=== PATIENT | female | born 1955 | race Caucasian/White ===

== ENCOUNTER 2019-03-12 11:50 | Emergency (ER) | payer OTHER, SELFPAY ==
[2019-03-12] VITALS (9 sets, daily range): BP systolic 171–245; BP diastolic 76–113; PULSE 44–76; RESP 11–14; TEMP 36.7; O2SAT 97–100
--- NOTE | 2019-03-12 11:59 | DI.RAD.S_ITS ---
PROCEDURE: XR CHEST 1V INDICATIONS: chest pain TECHNIQUE: One view of the chest was acquired. COMPARISON: None. FINDINGS: Surgical changes and devices: Epigastric clips are seen. Lungs and pleura: Lungs are clear. No pleural effusions or pneumothorax. Mediastinum: The cardiac contours are within normal limits. The aorta demonstrates calcification and tortuosity. Bones and chest wall: Age-appropriate bony degenerative changes are seen. No suspicious bony lesions. Overlying soft tissues appear unremarkable. IMPRESSION: Portable chest within normal limits. Dictated by: Vasyl Lopez M.D. on 03/12/2019 at 12:15 Approved by: Vasyl Lopez M.D. on 03/12/2019 at 12:15
--- NOTE | 2019-03-12 12:11 | PC.NURSE ---
nilateral lower leg pain, nausea, headache and aching heart. Denies chest pain but reports some aching in her chest. Denies SOB.
[2019-03-12 12:17] LABS: Add Manual Diff / Slide Review NO; Basophils Absolute Auto 0 /uL (0-100); Basophils Percent Auto 0.8 % (0-2); Eosinophils Absolute Auto 0 /uL (0-450); Eosinophils Percent Auto 0.5 % (2-4); Hemoglobin 12.9 g/dL (12.0-16.0); Lymphocytes Absolute Auto 1500 /uL (1100-4500); Lymphocytes Percent Auto 24.9 % (25-40); Mean Corpuscular HGB Conc 33.9 % (30-36); Mean Corpuscular Hemoglobin 30.5 PG (26-34); Monocytes Absolute Auto 400 /uL (0-900); Neutrophils Absolute Auto 4000 /uL (1500-7000); Neutrophils Percent Auto 67.8 % (50-75); Platelet Count 180 X10^3/uL (150-400); Red Blood Cell Count 4.22 X10^6/uL (4.0-5.2); Red Cell Distribution Width 13.4 % (11.6-14.8); White Blood Cell Count 5.9 X10^3/uL (4.5-11.0)
[2019-03-12 12:22] LABS: INR 0.9 (0.9-1.3); Prothrombin Time 10.5 SECONDS (10.1-12.7)
[2019-03-12 12:24] LABS: PTT Partial Thromboplastin Tim 33 SECONDS (26.4-36.2)
[2019-03-12 12:28] LABS: Alanine Aminotransferase 16 IU/L (9-52); Albumin 4.4 g/dL (3.5-5.0); Albumin Globulin Ratio 1.8 (1.0-2.8); Alkaline Phosphatase 95 U/L (38-126); Aspartate Aminotransferase 24 IU/L (14-36); BUN Creatinine Ratio 28.3 (6-22); Bilirubin Total 0.8 mg/dL (0.2-1.3); Blood Urea Nitrogen 17 mg/dL (7-17); Calcium 9.4 mg/dL (8.4-10.2); Carbon Dioxide 25 mmol/L (22-32); Chloride 106 mmol/L (98-107); Creatine Kinase 67 U/L (30-135); Estimated Glomerular Filt Rate > 60.0 mL/min (>60); Globulin 2.5 g/dL (1.7-4.1); Glucose 99 mg/dL (80-110); HEMOLYSIS 30 (0-50); Lipase 71 U/L (23-300); Potassium 3.6 mmol/L (3.4-5.1); Sodium 140 mmol/L (137-145); Total Protein 6.9 g/dL (6.3-8.2)
[2019-03-12 12:38] LABS: Troponin I < 0.012 ng/mL (0.01-0.034)
[2019-03-12] MEDS: LISINOPRIL 5 MG TABLET PO (14:43)
[2019-03-12] MEDS: POTASSIUM CHLORIDE 20 MEQ TAB PO (14:43)
[2019-03-12] MEDS: SODIUM CHLORIDE 0.9% 500 ML 1000 ML IV (15:04)
--- NOTE | 2019-03-12 15:51 | PC.NURSE ---
Patient reports feeling significantly better after fluids. States legs feel better and my joints feel better overall
--- NOTE | 2019-03-12 16:20 | ED.GENADULT ---
HPI - General Adult <Maninder SimeonJAMIN - Last Filed: 03/12/19 22:47> General Chief complaint: Hypertension Stated complaint: 'REACTION TO BLOOD PRESSURE MEDICINE' Time Seen by Provider: 03/12/19 12:23 Source: patient Mode of arrival: ambulatory Limitations: no limitations History of Present Illness HPI narrative: This is a 63-year-old female, remote history of smoker, presents to ED with elevated blood pressure with symptoms such as dizziness, headache, nausea, dry mouth and also complains of bilateral lower extremity numbness and cramps since for last 2 weeks. Patient reports she used to be on p.o. diuretic HTN medication and this has been changed to clonidine patch during last 1 month. Patient states because she does not like to take pills and when she was instructed to take a banana daily for this medication, hypertension medication has been changed to patch form. She only uses clonidine patch currently to manage her blood pressure. The patient reports she had gastric bypass surgery in the past and is not able to take large glass of water or eat a banana which makes her full is Magaly and makes her nauseous. Patient denies vision change, speech difficulty, weakness to limbs, chest pain, breathing difficulty at this time. Related Data Home Medications Medication Instructions Recorded Confirmed amlodipine 5 mg PO DAILY 03/12/19 03/12/19 clonidine 0.2 mg TOPICAL QWEEK 03/12/19 03/12/19 diclofenac sodium 1 applic TOPICAL DIRECTED 03/12/19 Previous Rx's Medication Instructions Recorded lisinopril 5 mg PO DAILY #14 tab 03/12/19 Allergies Allergy/AdvReac Type Severity Reaction Status Date / Time No Known Drug Allergies Allergy Verified 03/12/19 12:05 Review of Systems <Maninder SimeonJAMIN - Last Filed: 03/12/19 22:47> Review of Systems General: Denies fever, chills, fatigue, malaise, sweats. HEENT: Denies sinus pain, ear pain, sore throat, difficulty swallowing, dizziness. Respiratory: Denies dyspnea, cough, wheezing, hemoptysis, sputum. Cardiovascular: Denies chest pain, palpitations, orthopnea, edema. Gastrointestinal: Reports nausea. Denies vomiting, abdominal pain, diarrhea, constipation, melena. : Denies dysuria, frequency, incontinence, hematuria, urinary retention. Musculoskeletal: Bilateral lower extremity numbness and cramps. Denies weakness, joint pain or bony pain. Skin: Denies rash, skin lesions, or other. Neurologic: Reports headache. Denies weakness, change in speech, confusion, seizures, incoordination. Psychiatric: No concerning psychosocial issues. 12-point review of systems is negative except for those stated above. PFSH <JAMIN Beth - Last Filed: 03/12/19 22:47> Medical History Hypertension (Acute) Hypokalemia (Acute) Surgical History H/O gastric bypass (Acute) History of cholecystectomy (Chronic) History of bilateral breast reduction surgery (Resolved) History of total hysterectomy (Resolved) Social History Smoking Status: Former smoker Social History Smoking Status: Former smoker Exam <JAMIN Beth - Last Filed: 03/12/19 22:47> Narrative Exam Narrative: GEN: Alert, oriented x 3, well appearing and nourished, and in no acute distress. Head: Normal cephalic, atraumatic. No scalp or temporal tenderness, palpable mass or rash. EYES: Pupils are equal, round, and reactive to light and accommodation. Extraocular muscles are intact bilaterally. There is no subconjunctival hemorrhage, exudate and sclera non-icteric. ENT: Hearing grossly intact. Nose without bleeding, purulent discharge. Mucous membrane moist, no mucosal lesion. Throat without erythema, tonsillar hypertrophy or exudate. Uvula in midline, airway patent. Neck: Trachea in midline. No JVD, non-tender without lymphadenopathy. No masses or thyroid megaly. Supple, non-tender and no meningeal signs. CARDIAC: Normal regular rate and rhythm without murmurs, gallops, or rubs. No chest wall tenderness. No peripheral edema, cyanosis or pallor. Capillary refill is less than 2 seconds. RESPIRATORY: Lungs are cleat to auscultate bilaterally. No cough, wheezes, rales, or rhonchi. No stridor, respiratory distress, increase work of breathing, or accessary muscle used. ABD: Abdomen soft, nontender and non-distended. No guarding or rebound tenderness to palpate. Bowel sounds are normal in all 4 quadrants. There is no palpable masses or organomegaly. EXT: Full painless ROM of all extremities with no loss of sensation, strength, effusion or edema. SKIN: Warm, dry, normal color for patient. No erythema, lesions or rash over visible areas. BACK: Nontender without deformity or crepitance. No flank tenderness. NEUROLOGICAL: Alert and oriented to place, time and person. Sensation and motor function intact bilaterally. No facial droops, dysphasia. PSYCHIATRIC: Good judgement and reason, without hallucinations, abnormal affect or abnormal behaviors during the examination. Patient is not suicidal. Initial Vital Signs Initial Vital Signs: Vital Signs Temperature 98.1 F 03/12/19 11:51 Pulse Rate 76 03/12/19 11:51 Respiratory Rate 12 03/12/19 11:51 Blood Pressure 245/113 H 03/12/19 11:51 Pulse Oximetry 98 03/12/19 11:51 <Bethany Dubose DO - Last Filed: 03/16/19 07:16> Initial Vital Signs Initial Vital Signs: Vital Signs Temperature 98.1 F 03/12/19 11:51 Pulse Rate 76 03/12/19 11:51 Respiratory Rate 12 03/12/19 11:51 Blood Pressure 245/113 H 03/12/19 11:51 Pulse Oximetry 98 03/12/19 11:51 Course <JAMIN Beth - Last Filed: 03/12/19 22:47> Orders Ordered: Discontinued Medications Sodium Chloride (Normal Saline 0.9%) 500 mls @ 1,000 mls/hr IV BOLUS ONE Stop: 03/12/19 15:24 Last Infusion: 03/12/19 15:43 Dose: 0 mls/hr Admin: 03/12/19 15:04 Dose: 1,000 mls/hr Lisinopril (Zestril) 5 mg PO NOW ONE Stop: 03/12/19 14:33 Last Admin: 03/12/19 14:43 Dose: 5 mg Potassium Chloride (Klor-Con M20) 20 meq PO NOW ONE Stop: 03/12/19 14:33 Last Admin: 03/12/19 14:43 Dose: 20 meq Vital Signs - 8 hr 03/12/19 14:30 03/12/19 14:43 03/12/19 15:40 Pulse Rate 49 L 65 48 L Respiratory Rate 11 L Blood Pressure 179/105 H Blood Pressure [Right Arm] 201/84 H 208/83 H Pulse Oximetry 100 98 03/12/19 16:09 03/12/19 16:22 Pulse Rate 45 L 45 L Respiratory Rate 13 Blood Pressure 190/81 H Blood Pressure [Right Arm] 190/81 H Pulse Oximetry 99 <Bethany Dubose DO - Last Filed: 03/16/19 07:16> Orders Ordered: Discontinued Medications Sodium Chloride (Normal Saline 0.9%) 500 mls @ 1,000 mls/hr IV BOLUS ONE Stop: 03/12/19 15:24 Last Infusion: 03/12/19 15:43 Dose: 0 mls/hr Admin: 03/12/19 15:04 Dose: 1,000 mls/hr Lisinopril (Zestril) 5 mg PO NOW ONE Stop: 03/12/19 14:33 Last Admin: 03/12/19 14:43 Dose: 5 mg Potassium Chloride (Klor-Con M20) 20 meq PO NOW ONE Stop: 03/12/19 14:33 Last Admin: 03/12/19 14:43 Dose: 20 meq Vital Signs - 8 hr 03/12/19 14:30 03/12/19 14:43 03/12/19 15:40 Pulse Rate 49 L 65 48 L Respiratory Rate 11 L Blood Pressure 179/105 H Blood Pressure [Right Arm] 201/84 H 208/83 H Pulse Oximetry 100 98 03/12/19 16:09 03/12/19 16:22 Pulse Rate 45 L 45 L Respiratory Rate 13 Blood Pressure 190/81 H Blood Pressure [Right Arm] 190/81 H Pulse Oximetry 99 Medical Decision Making <JAMIN Beth - Last Filed: 03/12/19 22:47> Differential Diagnosis HTN, electrolytes imbalance, dehydration, arrhythema, RI, stroke Medical Records Medical records reviewed: Yes I reviewed the patient's medical records. Lab Data Lab results reviewed: Yes I reviewed the patient's lab results. Result diagrams: 03/12/19 12:05 03/12/19 12:05 Lab Results 03/12/19 03/12/1919 Range/Units 12:05 12:05 12:05 WBC 5.9 (4.5-11.0) X10^3/uL RBC 4.22 (4.0-5.2) X10^6/uL Hgb 12.9 (12.0-16.0) g/dL Hct 38.0 (36-46) % MCV 90.0 (80-100) fL MCH 30.5 (26-34) PG MCHC 33.9 (30-36) % RDW 13.4 (11.6-14.8) % Plt Count 180 (150-400) X10^3/uL Neut % (Auto) 67.8 (50-75) % Lymph % (Auto) 24.9 L (25-40) % [place] % (Auto) 6.0 (3-14) % Eos % (Auto) 0.5 L (2-4) % Baso % (Auto) 0.8 (0-2) % Neut # (Auto) 4000 (9513-5165) /uL Lymph # (Auto) 1500 (0196-4298) /uL [place] # (Auto) 400 (0-900) /uL Eos # (Auto) 0 (0-450) /uL Baso # (Auto) 0 (0-100) /uL PT 10.5 (10.1-12.7) SECONDS INR 0.9 (0.9-1.3) APTT 33 (26.4-36.2) SECONDS Sodium 140 (137-145) mmol/L Potassium 3.6 (3.4-5.1) mmol/L Chloride 106 (98-107) mmol/L Carbon Dioxide 25 (22-32) mmol/L BUN 17 (7-17) mg/dL Creatinine 0.60 (0.52-1.04) mg/dL Estimated GFR > 60.0 (>60) mL/min BUN/Creatinine Ratio 28.3 H (6-22) Glucose 99 (80-110) mg/dL Calcium 9.4 (8.4-10.2) mg/dL Total Bilirubin 0.8 (0.2-1.3) mg/dL AST 24 (14-36) IU/L ALT 16 (9-52) IU/L Alkaline Phosphatase 95 (38-126) U/L Total Creatine Kinase 67 (30-135) U/L CK-MB (CK-2) TNP CK-MB (CK-2) Rel Index TNP Troponin I < 0.012 (0.01-0.034) ng/mL Total Protein 6.9 (6.3-8.2) g/dL Albumin 4.4 (3.5-5.0) g/dL Globulin 2.5 (1.7-4.1) g/dL Albumin/Globulin Ratio 1.8 (1.0-2.8) Lipase 71 (23-300) U/L Imaging Data Chest x-ray: Radiologist's impression: [address] [address] XRay Report Signed Patient: Nora Mckeon [facility]#: [id number] : 5Acct:[id number] Age/Sex: 63 / FDate of Service: 03/12/19 Loc: ED Accession Number: [id number] Procedure: XR chest 1V Ordering Provider: Bethany Dubose D.O. PROCEDURE: XR CHEST 1V INDICATIONS: chest pain TECHNIQUE: One view of the chest was acquired. COMPARISON: None. FINDINGS: Surgical changes and devices: Epigastric clips are seen. Lungs and pleura: Lungs are clear. No pleural effusions or pneumothorax. Mediastinum: The cardiac contours are within normal limits. The aorta demonstrates calcification and tortuosity. Bones and chest wall: Age-appropriate bony degenerative changes are seen. No suspicious bony lesions. Overlying soft tissues appear unremarkable. IMPRESSION: Portable chest within normal limits. Dictated by: Vasyl Lopez M.D. on 03/12/2019 at 12:15 Approved by: Vasyl Lopez M.D. on 03/12/2019 at 12:15 ECG Data Attestation: I personally reviewed and interpreted this ECG as follows: Prior ECG tracings: not available for review Interpretation: Sinus rhythm rate at 63, normal axis, no ST elevation or depression MDM Narrative Medical decision making narrative: Patient's EKG shows normal sinus rhythm without ST elevation or depression. During patient's stay in the ED and at rest her heart rate has slowed to 40s to 50s. Patient reports her usual heart rate is in 50s and she has been trying to relax in attempt to lower her blood pressure. Neurological physical exam was within normal. Her blood tests and chest x-ray results were unremarkable and troponin level was negative. She was provided with 20 mEq of potassium p.o. for lower end of normal limits as 3.6. Patient reports not able to drink a large amount and damage had similar symptoms in lower leg cramping and numbness IV fluid helped her. Given patient has elevated blood pressure, normal saline of 500 mL was provided and patient states her leg numbness and tingling were resolved. Patient was medicated with lisinopril 5 mg while in ED and advised to monitor her blood pressure at home and regular interval and other routine time. Patient advised to record days and take it to her primary care physician with her blood pressure machine for next appointment. Patient's blood pressure was from average 160s to 200 and systolic/70s to 80s diastolic. Patient reports improved symptoms with the treatment. Patient advised to use additional lisinopril to her daily treatment for clonidine patch. Return precautions were discussed with patient and advised to follow up with her PCP next week. No further questions were expressed at this time. <Bethany Dubose, DO - Last Filed: 03/16/19 07:16> Lab Data Lab Results 03/12/19 03/12/19 03/12/19 Range/Units 12:05 12:05 12:05 WBC 5.9 (4.5-11.0) X10^3/uL RBC 4.22 (4.0-5.2) X10^6/uL Hgb 12.9 (12.0-16.0) g/dL Hct 38.0 (36-46) % MCV 90.0 (80-100) fL MCH 30.5 (26-34) PG MCHC 33.9 (30-36) % RDW 13.4 (11.6-14.8) % Plt Count 180 (150-400) X10^3/uL Neut % (Auto) 67.8 (50-75) % Lymph % (Auto) 24.9 L (25-40) % [place] % (Auto) 6.0 (3-14) % Eos % (Auto) 0.5 L (2-4) % Baso % (Auto) 0.8 (0-2) % Neut # (Auto) 4000 (5199-3016) /uL Lymph # (Auto) 1500 (6357-4637) /uL [place] # (Auto) 400 (0-900) /uL Eos # (Auto) 0 (0-450) /uL Baso # (Auto) 0 (0-100) /uL PT 10.5 (10.1-12.7) SECONDS INR 0.9 (0.9-1.3) APTT 33 (26.4-36.2) SECONDS Sodium 140 (137-145) mmol/L Potassium 3.6 (3.4-5.1) mmol/L Chloride 106 (98-107) mmol/L Carbon Dioxide 25 (22-32) mmol/L BUN 17 (7-17) mg/dL Creatinine 0.60 (0.52-1.04) mg/dL Estimated GFR > 60.0 (>60) mL/min BUN/Creatinine Ratio 28.3 H (6-22) Glucose 99 (80-110) mg/dL Calcium 9.4 (8.4-10.2) mg/dL Total Bilirubin 0.8 (0.2-1.3) mg/dL AST 24 (14-36) IU/L ALT 16 (9-52) IU/L Alkaline Phosphatase 95 (38-126) U/L Total Creatine Kinase 67 (30-135) U/L CK-MB (CK-2) TNP CK-MB (CK-2) Rel Index TNP Troponin I < 0.012 (0.01-0.034) ng/mL Total Protein 6.9 (6.3-8.2) g/dL Albumin 4.4 (3.5-5.0) g/dL Globulin 2.5 (1.7-4.1) g/dL Albumin/Globulin Ratio 1.8 (1.0-2.8) Lipase 71 (23-300) U/L Discharge Plan Departure Patient Disposition: Home Clinical Impression: Muscle spasm Hypertension Qualifiers: Hypertension type: unspecified Qualified Code(s): I10 - Essential (primary) hypertension Discharge Date/Time: 03/12/19 16:23 Interventions: ED Discharge Assessment Last Done: 03/12/19 16:22 Instructions: DI for High Blood Pressure, DI for Muscle Spasm Activity Restrictions/Additional Instructions: You have been diagnosed with [high blood pressure and muscle spasm. You're EKG, chest x-ray, labs are looking good today. You're blood pressure has been elevated in the ED from 160s in systolic to 200's. You're symptoms have been improved after the medications and IV fluids. You potassium was lower normal limits. You're medicated with a small dose of potassium before discharged to home. I believe you're currently taking only 1 blood pressure medication which is clonidine patch.]. What to do: *Take your medications as directed. Lisinopril 5 mg is added today. Please take additional blood pressure medicine with clonidine patch and as we discussed please monitor your blood pressure. Your doctor may have to adjust blood pressure medication with this information. You can continue to take potassium [id number] supplement if you wish to. *Follow up with your primary care provider in 2-3 days, call for an appointment. Let them know you were seen in the ED and that we asked you to be seen in follow up. *Return to ED if you have any new, worsening, or concerning symptoms, such as [chest pain, breathing difficulty, unable to tolerate fluids, dizziness, severe headache, vision change, weakness to 1 side of body, speech difficulty, any acute concerns]. Prescriptions: New lisinopril 5 mg tablet 5 mg PO DAILY Qty: 14 RF: 0 No Action clonidine 0.2 mg/24 hr patch weekly 0.2 mg topical QWEEK RF: 0 amlodipine 5 mg tablet 5 mg PO DAILY RF: 0 diclofenac sodium 1 % gel 1 applic topical DIRECTED RF: 0 Referrals: [facility] [Outside] <Bethany Dubose DO - Last Filed: 03/16/19 07:16> Cosign ED Attending Cosdebbieature Attestation: I was immediately available in the department for consultation. This documentation has been reviewed and I agree with assessment and plan. Supervised by Bethany Dubose DO
== END 2019-03-12 16:23 | disposition home or self-care (01) ==
PROVIDERS: Emergency Medicine; Emergency Provider Nurse Practitioner Family
DX: I10 Essential (primary) hypertension (principal); M62.838 Other muscle spasm
CPT/HCPCS: 36591; 71045; 80053; 82550; 83690; 84484; 85025; 85610; 85730; 93005; 96360; 99284; 99285

== ENCOUNTER 2022-02-23 18:29 | Inpatient (IN) | payer MEDICARE, OTHER, SELFPAY ==
[2022-02-23] VITALS (42 sets, daily range): BP systolic 128–262; BP diastolic 62–129; PULSE 59–88; RESP 7–43; TEMP 36–36.6; O2SAT 96–100; BMI 25.4; BMI 24.9
--- NOTE | 2022-02-23 19:14 | DI.CT.S_ITS ---
PROCEDURE: CT HEAD/BRAIN WO CON INDICATIONS: altered, HTN emergency TECHNIQUE: Noncontrast 4.5 mm thick angled axial sections acquired from the foramen magnum to the vertex, with coronal and sagittal reformats. For radiation dose reduction, the following was used: automated exposure control, adjustment of mA and/or kV according to patient size. COMPARISON: None. FINDINGS: Image quality: Excellent. CSF spaces: Basal cisterns are patent. No extra-axial fluid collections. Ventricles are normal in size and shape. Brain: No midline shift. No intracranial hemorrhage but there is a mass near the internal auditory canal of the left cerebellum, which measures up to 2.4 cm oblique AP, 2.1 cm oblique transverse and 2.0 cm craniocaudad. This is not associated with asymmetric enlargement of the internal auditory canal bone margins, and the appearance therefore is considered more likely to represent a coincidental finding of a meningioma rather than definite acoustic neuroma.. Dominguez-white matter interface is normal. Skull and face: Calvarium and visualized facial bones are intact, without suspicious lesions. Sinuses: Visualized sinuses and mastoids are clear. IMPRESSION: No acute disease however there is a mass lesion at the area at or adjacent to the internal auditory canal on the left considered more likely by appearance to be a coincidentally found meningioma. Follow-up by contrast-enhanced elective brain MRI is recommended in the near term. No ventricular displacement is associated. Dictated by: Ander Montano M.D. on 02/23/2022 at 20:20 Approved by: Ander Montano M.D. on 02/23/2022 at 20:25
--- NOTE | 2022-02-23 19:14 | DI.RAD.S_ITS ---
PROCEDURE: XR CHEST 1V INDICATIONS: chest pain TECHNIQUE: One view of the chest was acquired. COMPARISON: [facility], CR, XR CHEST 1V, 03/12/2019, 12:11. FINDINGS: Surgical changes and devices: None. Lungs and pleura: Lungs are clear. No pleural effusions or pneumothorax. Mediastinum: Mediastinal contours appear normal. Heart size is normal. Bones and chest wall: No suspicious bony lesions. Overlying soft tissues appear unremarkable. IMPRESSION: Normal for age, source of current chest pain symptoms is not seen. Dictated by: Ander Montano M.D. on 02/23/2022 at 20:12 Approved by: Ander Montano M.D. on 02/23/2022 at 20:12
[2022-02-23 19:29] LABS: Add Manual Diff / Slide Review NO; Basophils Absolute Auto 100 /uL (0-100); Basophils Percent Auto 0.9 % (0-2); Eosinophils Absolute Auto 0 /uL (0-450); Eosinophils Percent Auto 0.7 % (2-4); Hematocrit 38.9 % (36-46); Hemoglobin 13.1 g/dL (12.0-16.0); Lymphocytes Absolute Auto 1600 /uL (1100-4500); Lymphocytes Percent Auto 26.3 % (25-40); Mean Corpuscular HGB Conc 33.8 % (30-36); Mean Corpuscular Volume 91.6 fL (80-100); Monocytes Absolute Auto 300 /uL (0-900); Neutrophils Absolute Auto 4200 /uL (1500-7000); Neutrophils Percent Auto 67.1 % (50-75); Platelet Count 187 X10^3/uL (150-400); Red Blood Cell Count 4.24 X10^6/uL (4.0-5.2); Red Cell Distribution Width 13.7 % (11.6-14.8); White Blood Cell Count 6.3 X10^3/uL (4.5-11.0)
[2022-02-23] MEDS: LABETALOL 20 MG/4 ML SYRINGE 10 MG IV (19:31)
[2022-02-23] MEDS: SODIUM CHLORIDE 0.9% 1,000 ML 150 ML IV (19:33)
[2022-02-23 19:37] LABS: Prothrombin Time 10.6 SECONDS (10.1-12.7)
[2022-02-23 19:40] LABS: Alanine Aminotransferase 44 IU/L (<35); Albumin 4.9 g/dL (3.5-5.0); Albumin Globulin Ratio 1.6 (1.0-2.8); Alkaline Phosphatase 110 U/L (38-126); Aspartate Aminotransferase 46 IU/L (14-36); BUN Creatinine Ratio 20.9 (6-22); Bilirubin Total 0.6 mg/dL (0.2-1.3); Blood Urea Nitrogen 19 mg/dL (7-17); Calcium 8.9 mg/dL (8.4-10.2); Carbon Dioxide 23 mmol/L (22-32); Chloride 101 mmol/L (98-107); Creatine Kinase 75 U/L (30-135); Estimated Glomerular Filt Rate > 60 mL/min (>60); Glucose 105 mg/dL (80-110); HEMOLYSIS < 15 (0-50); Lipase 118 U/L (23-300); Potassium 3.5 mmol/L (3.4-5.1); Sodium 137 mmol/L (137-145); Total Protein 7.9 g/dL (6.3-8.2)
--- NOTE | 2022-02-23 19:40 | ED_ITS ---
HPI - Weakness General Chief complaint: Weakness Stated complaint: Really Sick Time Seen by Provider: 02/23/22 18:35 Source: patient and family Mode of arrival: Wheelchair History of Present Illness HPI Narrative: 66-year-old female former smoker with history of untreated blood pressure for quite some time presents with her significant other and a chief complaint of feeling very poorly for the past week or so. She complains of a crushing headache along with dizziness and some blurring of her vision. She states this has been gradually worsening, she denies any trauma, fever, neck pain or the use of blood thinners. She denies any obvious provocation, palliation or radiation of her head pain. She denies chest pain or shortness of breath. She denies abdominal pain but has been nauseated and thinks maybe she would have been able to vomit but she is had a stomach surgery that prevents it. She admits to tingling in her lower extremities but denies any weakness, footdrop or loss of control of bowel, bladder Related Data Home Medications Medication Instructions Recorded Confirmed amlodipine 5 mg tablet 5 mg PO DAILY 03/12/19 03/12/19 clonidine 0.2 mg/24 hr weekly 0.2 mg topical QWEEK 03/12/19 03/12/19 transdermal patch diclofenac sodium 1 % topical gel 1 applic topical DIRECTED 03/12/19 Previous Rx's Medication Instructions Recorded lisinopril 5 mg tablet 5 mg PO DAILY #14 tabs 03/12/19 Allergies Allergy/AdvReac Type Severity Reaction Status Date / Time No Known Drug Allergies Allergy Verified 03/12/19 12:05 Review of Systems Review of Systems Narrative: GENERAL: See HPI HEENT: See HPI RESPIRATORY: See HPI CARDIOVASCULAR: Denies chest pain, palpitations, orthopnea, edema, GASTROINTESTINAL: See HPI : Denies dysuria, frequency, incontinence, hematuria, urinary retention. MUSCULOSKELETAL: See HPI SKIN: Denies rash, skin lesions, or other NEUROLOGIC: See HPI PSYCHIATRIC: No concerning psychosocial issues. 12 point review of systems is negative except for those stated above Patient History Medical History (Updated 02/23/22 @ 22:18 by Martin Pack DO) Hypertension Hypokalemia Surgical History H/O gastric bypass History of bilateral breast reduction surgery History of cholecystectomy History of total hysterectomy Social History Smoking Status: Former smoker Smoking Status: Former smoker alcohol intake frequency: 0-2 drinks per day Substance Use Type: does not use Exam Narrative Exam Narrative: GENERAL: [66] year old patient appears stated age. Well-developed patient, in mild distress. HEAD: Atraumatic. Normocephalic. EYES: Pupils equal round and reactive. Extraocular motions intact. No scleral icterus. No injection or drainage. ENT: Nose without bleeding, purulent drainage. Throat without erythema, tonsillar hypertrophy or exudate. Airway patent. NECK: Trachea midline. Non tender CARDIOVASCULAR: Regular rate and rhythm without murmurs, gallops, or rubs. RESPIRATORY: Clear to auscultation. Breath sounds equal bilaterally. No wheezes, rales, or rhonchi. GASTROINTESTINAL: Abdomen soft, non-tender, nondistended. EXTREMITIES: No edema or joint tenderness. BACK: Nontender without deformity or crepitance. No flank tenderness. NEURO: AOx3. SKIN: No rash or erythema of visible areas NIH Stroke Scale 1a. LOC: Patient is alert and keenly responsive (0) 1b. LOC Questions: Patient answers both LOC questions accurately (0) 1c. LOC Commands: Patient performs both tasks correctly (0) 2. Best Gaze: Normal (0) 3. Visual: No visual loss (0) 4. Facial palsy: Normal symmetrical movements (0) 5. Motor arm: No drift (0) 6. Motor leg: No drift (0) 7. Limb ataxia: Absent (0) 8. Sensory: Normal (0) 9. Best language: No aphasia; normal (0) 10. Dysarthria: Normal (0) 11. Extinction and inattention: No abnormality (0) NIHSS: 0 Initial Vital Signs Initial Vital Signs: Vital Signs Temperature 96.8 F L 02/23/22 18:32 Pulse Rate 88 02/23/22 18:32 Respiratory Rate 18 02/23/22 18:32 Blood Pressure 262/129 H 02/23/22 18:32 Pulse Oximetry 100 02/23/22 18:32 Oxygen Delivery Method 02/23/22 18:32 Course Orders Ordered: ED Orders 02/23/22 19:05 Complete Blood Count AUTO DIFF Stat Comprehensive Metabolic Panel Stat Lipase Stat NT-proBNP (BNP-Adult 18+) Stat Prothrombin Time INR Stat Troponin & CK Cardiac Panel Stat 02/23/22 19:14 CT head/brain wo con Stat XR chest 1V Stat 02/23/22 19:24 EKG-12 Lead Stat Sodium Chloride (Normal Saline 0.9%) 1,000 mls @ 150 mls/hr IV CONT FANTASMA Last Admin: 02/23/22 19:33 Dose: 150 mls/hr Documented By: SHARI Nicardipine HCl 25 mg/ Sodium (Chloride) 250 mls @ 50 mls/hr IV TITRATE FANTASMA; Protocol Discontinued Medications Labetalol HCl (Labetalol 20 Mg/4 Ml Syringe) 10 mg IV NOW ONE Stop: 02/23/22 19:15 Last Admin: 02/23/22 19:31 Dose: 10 mg Documented By: SHARI Lisinopril (Lisinopril 20 Mg Tablet) 20 mg PO NOW ONE Stop: 02/23/22 21:06 Last Admin: 02/23/22 21:12 Dose: 20 mg Documented By: SHARI Reevaluation(s) Reevaluation #1: Patient has a significant, if not complete resolution of symptoms after labetalol 10 mg. Her blood pressures down to the 180s Reevaluation #2: BP back up and symptoms return 30 minutes later. She states that she thinks she had relatively good blood pressure control when she had been on her lisinopril 20 mg, this has been ordered and administered, an additional labetalol 10 mg ordered while we wait Again her blood pressure responds nicely, down to the 180s and her symptoms follow accordingly. Reevaluation #3: 45 minutes after lisinopril administered her blood pressure continues to climb into the 230s and her headache and dizziness have returned. Hospitalist contacted for admission, nicardipine drip ordered Vital Signs Vital signs: Vital Signs - 8 hr 02/23/22 18:32 02/23/22 19:31 02/23/22 19:30 Temperature 96.8 F L Pulse Rate 88 65 68 Respiratory Rate 18 25 H Blood Pressure 262/129 H 230/108 H Pulse Oximetry 100 98 Oxygen Delivery Method Room Air 02/23/22 19:31 02/23/22 19:31 02/23/22 19:35 Temperature Pulse Rate 66 Respiratory Rate 14 Blood Pressure 230/108 H 225/94 H Pulse Oximetry 98 Oxygen Delivery Method 02/23/22 19:35 02/23/22 19:41 02/23/22 19:41 Temperature Pulse Rate 65 62 Respiratory Rate 15 12 Blood Pressure 203/95 H Pulse Oximetry 98 97 Oxygen Delivery Method 02/23/22 19:58 02/23/22 19:45 02/23/22 19:45 Temperature Pulse Rate 63 62 Respiratory Rate 13 Blood Pressure 189/84 H 198/95 H Pulse Oximetry 98 Oxygen Delivery Method 02/23/22 19:50 02/23/22 19:50 02/23/22 19:55 Temperature Pulse Rate 63 63 Respiratory Rate 16 17 Blood Pressure 199/94 H Pulse Oximetry 98 97 Oxygen Delivery Method 02/23/22 19:55 02/23/22 20:00 02/23/22 20:11 Temperature Pulse Rate 63 61 Respiratory Rate 30 H 17 Blood Pressure 189/84 H Pulse Oximetry 99 99 Oxygen Delivery Method 02/23/22 20:11 02/23/22 20:15 02/23/22 20:15 Temperature Pulse Rate 63 Respiratory Rate 13 Blood Pressure 223/103 H 207/95 H Pulse Oximetry 99 Oxygen Delivery Method 02/23/22 20:20 02/23/22 20:20 02/23/22 20:25 Temperature Pulse Rate 61 59 L Respiratory Rate 15 16 Blood Pressure 207/96 H Pulse Oximetry 98 98 Oxygen Delivery Method 02/23/22 20:25 02/23/22 20:30 02/23/22 20:30 Temperature Pulse Rate 60 Respiratory Rate 16 Blood Pressure 202/96 H 209/97 H Pulse Oximetry 98 Oxygen Delivery Method 02/23/22 20:35 02/23/22 20:35 02/23/22 20:40 Temperature Pulse Rate 59 L Respiratory Rate 16 Blood Pressure 201/92 H 196/95 H Pulse Oximetry 97 Oxygen Delivery Method 02/23/22 20:40 02/23/22 20:45 02/23/22 20:45 Temperature Pulse Rate 61 60 Respiratory Rate 15 15 Blood Pressure 192/93 H Pulse Oximetry 98 97 Oxygen Delivery Method 02/23/22 21:12 02/23/22 20:50 02/23/22 20:50 Temperature Pulse Rate 60 65 Respiratory Rate 16 Blood Pressure 206/93 H 181/98 H Pulse Oximetry 99 Oxygen Delivery Method 02/23/22 20:55 02/23/22 20:55 02/23/22 21:00 Temperature Pulse Rate 63 Respiratory Rate 10 L Blood Pressure 171/88 H 206/93 H Pulse Oximetry 97 Oxygen Delivery Method 02/23/22 21:00 Temperature Pulse Rate 63 Respiratory Rate 12 Blood Pressure Pulse Oximetry 98 Oxygen Delivery Method MDM - Weakness Lab Data Result diagrams: 02/23/22 19:05 02/23/22 19:05 Labs: Lab Results 02/23/22 02/23/22 02/23/22 Range/Units 19:05 19:05 19:05 WBC 6.3 (4.5-11.0) X10^3/uL RBC 4.24 (4.0-5.2) X10^6/uL Hgb 13.1 (12.0-16.0) g/dL Hct 38.9 (36-46) % MCV 91.6 (80-100) fL MCH 31.0 (26-34) PG MCHC 33.8 (30-36) % RDW 13.7 (11.6-14.8) % Plt Count 187 (150-400) X10^3/uL Neut % (Auto) 67.1 (50-75) % Lymph % (Auto) 26.3 (25-40) % [place] % (Auto) 5.0 (3-14) % Eos % (Auto) 0.7 L (2-4) % Baso % (Auto) 0.9 (0-2) % Neut # (Auto) 4200 (2125-1887) /uL Lymph # (Auto) 1600 (8827-8106) /uL [place] # (Auto) 300 (0-900) /uL Eos # (Auto) 0 (0-450) /uL Baso # (Auto) 100 (0-100) /uL PT 10.6 (10.1-12.7) SECONDS INR 1.0 (0.9-1.3) Sodium 137 (137-145) mmol/L Potassium 3.5 (3.4-5.1) mmol/L Chloride 101 (98-107) mmol/L Carbon Dioxide 23 (22-32) mmol/L BUN 19 H (7-17) mg/dL Creatinine 0.91 (0.52-1.04) mg/dL Estimated GFR > 60 (>60) mL/min BUN/Creatinine Ratio 20.9 (6-22) Glucose 105 (80-110) mg/dL Calcium 8.9 (8.4-10.2) mg/dL Total Bilirubin 0.6 (0.2-1.3) mg/dL AST 46 H (14-36) IU/L ALT 44 H (<35) IU/L Alkaline Phosphatase 110 (38-126) U/L Total Creatine Kinase 75 (30-135) U/L CK-MB (CK-2) TNP CK-MB (CK-2) Rel Index TNP Troponin I < 0.012 (0.01-0.034) ng/mL NT-Pro-B Natriuret Pep 594 H (<125) pg/mL Total Protein 7.9 (6.3-8.2) g/dL Albumin 4.9 (3.5-5.0) g/dL Globulin 3.0 (1.7-4.1) g/dL Albumin/Globulin Ratio 1.6 (1.0-2.8) Lipase 118 (23-300) U/L Imaging Data CT scan - head: Radiologist Impression: Nora Mckeon??66??F??1955 ? Allergy/Adv: No Known Drug Allergies Close Head CT (Signed) Ander Montano - 02/23/22 Chest X-Ray (Signed) Ander Montano - 02/23/22 Chest X-Ray (Signed) Vasyl Lopez - 03/12/19 Launch?[place] [address] CT Scan Report Signed Patient: Nora Mckeon MR#: [id number] : 1955 Acct:[id number] Age/Sex: 66 / F Date of Service: 02/23/22 Loc: ED Accession Number: [id number] ?? Procedure: CT head/brain wo con Ordering Provider: Martin Pack D.O. PROCEDURE:? CT HEAD/BRAIN WO CON ? INDICATIONS:? altered, HTN emergency ? TECHNIQUE:? Noncontrast 4.5 mm thick angled axial sections acquired from the foramen magnum to the vertex, with coronal and sagittal reformats.? For radiation dose reduction, the following was used:? automated exposure control, adjustment of mA and/or kV according to patient size.? ? COMPARISON:? None. ? FINDINGS:? Image quality:? Excellent.? ? CSF spaces:? Basal cisterns are patent.? No extra-axial fluid collections.? Ventricles are normal in size and shape.? ? Brain:? No midline shift.? No intracranial hemorrhage but there is a mass near the internal auditory canal of the left cerebellum, which measures up to 2.4 cm oblique AP, 2.1 cm oblique transverse and 2.0 cm craniocaudad.? This is not associated with asymmetric enlargement of the internal auditory canal bone margins, and the appearance therefore is considered more likely to represent a coincidental finding of a meningioma rather than definite acoustic neuroma..? Dominguez-white matter interface is normal.? ? Skull and face:? Calvarium and visualized facial bones are intact, without suspicious lesions.? ? Sinuses:? Visualized sinuses and mastoids are clear.? ? IMPRESSION:? No acute disease however there is a mass lesion at the area at or adjacent to the internal auditory canal on the left considered more likely by appearance to be a coincidentally found meningioma.? Follow-up by contrast-enhanced elective brain MRI is recommended in the near term.? No ventricular displacement is associated. ? ? Dictated by: Ander Montano M.D. on 02/23/2022 at 20:20 ? ? Approved by: Ander Montano M.D. on 02/23/2022 at 20:25 ? Chest x-ray: Radiologist Impression: Close Head CT (Signed) Ander Montano - 02/23/22 Chest X-Ray (Signed) Ander Montano - 02/23/22 Chest X-Ray (Signed) Vasyl Lopez - 03/12/19 Launch?[facility] [address] [address] XRay Report Signed Patient: Nora Mckeon MR#: [id number] : 1955 Acct:[id number] Age/Sex: 66 / F Date of Service: 02/23/22 Loc: ED Accession Number: [id number] ?? Procedure: XR chest 1V Ordering Provider: Martin Pack D.O. PROCEDURE:? XR CHEST 1V ? INDICATIONS:? chest pain ? TECHNIQUE:? One view of the chest was acquired.? ? COMPARISON:? [facility], KRISTY, XR CHEST 1V, 03/12/2019, 12:11. ? FINDINGS:? ? Surgical changes and devices:? None.? ? Lungs and pleura:? Lungs are clear.? No pleural effusions or pneumothorax.? ? Mediastinum:? Mediastinal contours appear normal.? Heart size is normal.? ? Bones and chest wall:? No suspicious bony lesions.? Overlying soft tissues appear unremarkable.? ? IMPRESSION:? Normal for age, source of current chest pain symptoms is not seen. ? ? Dictated by: Ander Montano M.D. on 02/23/2022 at 20:12 ? ? Approved by: Ander Montano M.D. on 02/23/2022 at 20:12 ? Discharge Plan Departure Patient Disposition: Admitted As Inpatient Clinical Impression: Hypertensive emergency Prescriptions: No Action clonidine 0.2 mg/24 hr patch weekly 0.2 mg topical QWEEK amlodipine 5 mg tablet 5 mg PO DAILY diclofenac sodium 1 % gel 1 applic topical DIRECTED lisinopril 5 mg tablet 5 mg PO DAILY Qty: 14 0RF Referrals: Miscellaneous,DoctorMD [Primary Care Provider] -
[2022-02-23 19:52] LABS: NT-proBNP (BNP-Adult 18+) 594 pg/mL (<125); Troponin I < 0.012 ng/mL (0.01-0.034)
[2022-02-23] MEDS: lisinopriL 20 MG TABLET PO (21:12)
[2022-02-23] MEDS: NICARDIPINE 25 MG in SODIUM CHLORIDE 0.9% 240 ML 50 MG IV (22:33)
[2022-02-23] MEDS: ONDANSETRON 4 MG/2 ML INJ IV (22:59)
--- NOTE | 2022-02-23 23:29 | P.HP_ITS ---
History of Present Illness History of Present Illness Date Patient Seen: 02/23/22 Time Patient Seen: 23:30 Date of Onset of Symptoms: 02/17/22 Chief complaint: Really Sick Narrative: Patient is a 66-year-old female who apparently was in her usual state of health several months. Patient has had a long history of hypertension. She states she has tried different medication which did seem to really help. She really did want to take any med [place] pills last lisinopril which may be worked but she did want to continue to LE that switch to a clonidine patch which did really functionally help and she quit using that also. For the last week she has been having headache and has been. To the point where she really could not get down the hallway. She states that she thought it was her new glasses and she took goes off at a little better. She did not notice any chest pain shortness of breath diaphoresis or other change. Patient otherwise has just been feeling tired. Not had any No exertion. Orthopnea PND. Her headache has been somewhat of but diffuse headache. No visual changes. Seems to come and go. Not really responsive to anti-inflammatories or Tylenol she has had a little bit of nausea but no vomiting. Has not been as hungry. Abdominal discomfort change in bowel movements or urinary complaints. No significant family history. No other changes. Patient History Medical History Hypertension Hypokalemia Surgical History H/O gastric bypass History of bilateral breast reduction surgery History of cholecystectomy History of total hysterectomy Family & Social History Safety & Behavioral: Feels Safe in Current Yes Environment Been Physically Hurt or No Threatened By a Person Tobacco & Substance use: Smoking Status Former smoker alcohol intake frequency 0-2 drinks per day Substance Use Type does not use Meds Home Medications and Allergies Home Medications Medication Instructions Recorded Confirmed Type amlodipine 5 mg tablet 5 mg PO DAILY 03/12/19 03/12/19 History clonidine 0.2 mg/24 hr weekly 0.2 mg topical QWEEK 03/12/19 03/12/19 History transdermal patch diclofenac sodium 1 % topical gel 1 applic topical DIRECTED 03/12/19 History lisinopril 5 mg tablet 5 mg PO DAILY #14 tabs 03/12/19 Rx Allergies Allergy/AdvReac Type Severity Reaction Status Date / Time No Known Drug Allergies Allergy Verified 03/12/19 12:05 Review of Systems Review of Systems Narrative: Negative Except for above Exam Vital Signs (past 8 hours): - 02/23/22 18:32 02/23/22 19:31 02/23/22 19:30 Temperature 96.8 F L Pulse Rate 88 65 68 Respiratory Rate 18 25 H Blood Pressure 262/129 H 230/108 H Pulse Oximetry 100 98 Oxygen Delivery Method Room Air 02/23/22 19:31 02/23/22 19:31 02/23/22 19:35 Temperature Pulse Rate 66 Respiratory Rate 14 Blood Pressure 230/108 H 225/94 H Pulse Oximetry 98 Oxygen Delivery Method 02/23/22 19:35 02/23/22 19:41 02/23/22 19:41 Temperature Pulse Rate 65 62 Respiratory Rate 15 12 Blood Pressure 203/95 H Pulse Oximetry 98 97 Oxygen Delivery Method 02/23/22 19:58 02/23/22 19:45 02/23/22 19:45 Temperature Pulse Rate 63 62 Respiratory Rate 13 Blood Pressure 189/84 H 198/95 H Pulse Oximetry 98 Oxygen Delivery Method 02/23/22 19:50 02/23/22 19:50 02/23/22 19:55 Temperature Pulse Rate 63 63 Respiratory Rate 16 17 Blood Pressure 199/94 H Pulse Oximetry 98 97 Oxygen Delivery Method 02/23/22 19:55 02/23/22 20:00 02/23/22 20:11 Temperature Pulse Rate 63 61 Respiratory Rate 30 H 17 Blood Pressure 189/84 H Pulse Oximetry 99 99 Oxygen Delivery Method 02/23/22 20:11 02/23/22 20:15 02/23/22 20:15 Temperature Pulse Rate 63 Respiratory Rate 13 Blood Pressure 223/103 H 207/95 H Pulse Oximetry 99 Oxygen Delivery Method 02/23/22 20:20 02/23/22 20:20 02/23/22 20:25 Temperature Pulse Rate 61 59 L Respiratory Rate 15 16 Blood Pressure 207/96 H Pulse Oximetry 98 98 Oxygen Delivery Method 02/23/22 20:25 02/23/22 20:30 02/23/22 20:30 Temperature Pulse Rate 60 Respiratory Rate 16 Blood Pressure 202/96 H 209/97 H Pulse Oximetry 98 Oxygen Delivery Method 02/23/22 20:35 02/23/22 20:35 02/23/22 20:40 Temperature Pulse Rate 59 L Respiratory Rate 16 Blood Pressure 201/92 H 196/95 H Pulse Oximetry 97 Oxygen Delivery Method 02/23/22 20:40 02/23/22 20:45 02/23/22 20:45 Temperature Pulse Rate 61 60 Respiratory Rate 15 15 Blood Pressure 192/93 H Pulse Oximetry 98 97 Oxygen Delivery Method 02/23/22 21:12 02/23/22 20:50 02/23/22 20:50 Temperature Pulse Rate 60 65 Respiratory Rate 16 Blood Pressure 206/93 H 181/98 H Pulse Oximetry 99 Oxygen Delivery Method 02/23/22 20:55 02/23/22 20:55 02/23/22 21:00 Temperature Pulse Rate 63 Respiratory Rate 10 L Blood Pressure 171/88 H 206/93 H Pulse Oximetry 97 Oxygen Delivery Method 02/23/22 21:00 02/23/22 22:52 02/23/22 21:30 Temperature Pulse Rate 63 76 61 Respiratory Rate 12 14 Blood Pressure 150/74 H Pulse Oximetry 98 97 Oxygen Delivery Method 02/23/22 21:58 02/23/22 21:58 02/23/22 22:00 Temperature Pulse Rate 82 68 Respiratory Rate 20 9 L Blood Pressure 227/109 H Pulse Oximetry 99 98 Oxygen Delivery Method 02/23/22 22:30 02/23/22 22:40 02/23/22 22:40 Temperature Pulse Rate 63 66 Respiratory Rate 24 20 Blood Pressure 247/108 H Pulse Oximetry 98 98 Oxygen Delivery Method 02/23/22 22:41 02/23/22 22:41 02/23/22 22:42 Temperature Pulse Rate 65 Respiratory Rate 14 Blood Pressure 222/103 H 203/100 H Pulse Oximetry 99 Oxygen Delivery Method 02/23/22 22:42 02/23/22 22:43 02/23/22 22:43 Temperature Pulse Rate 65 67 Respiratory Rate 14 13 Blood Pressure 195/96 H Pulse Oximetry 99 98 Oxygen Delivery Method 02/23/22 22:44 02/23/22 22:44 02/23/22 22:45 Temperature Pulse Rate 67 71 Respiratory Rate 25 H 19 Blood Pressure 178/88 H Pulse Oximetry 98 98 Oxygen Delivery Method 02/23/22 22:45 02/23/22 22:50 02/23/22 22:50 Temperature Pulse Rate 80 Respiratory Rate 21 Blood Pressure 174/72 H 150/74 H Pulse Oximetry 100 Oxygen Delivery Method 02/23/22 22:55 02/23/22 22:55 02/23/22 23:00 Temperature Pulse Rate 70 Respiratory Rate 32 H Blood Pressure 154/80 H 139/65 Pulse Oximetry 99 Oxygen Delivery Method 02/23/22 23:00 02/23/22 23:14 Temperature Pulse Rate 80 62 Respiratory Rate 8 L 20 Blood Pressure 160/72 H Pulse Oximetry 96 100 Oxygen Delivery Method Room Air Oxygen Delivery Method Room Air Narrative Exam Narrative: Alert mildly fatigued latest female in no acute distress Pupils equal and responsive to light Mucous membranes moist. Neck Supple without adenopathy JVD or bruits. Lungs are clear. Heart regular rate and rhythm without murmurs clicks rubs or gallops. Abdomen is soft positive bowel sounds nontender. Extremities without cyanosis clubbing edema. Neurologic exam cranial nerves 2-12 reflexes 2+ and symmetric. Did not see gait Objective Labs Result Diagrams: 02/23/22 19:05 02/23/22 19:05 Labs: Laboratory Results - last 24 hr 02/23/22 02/23/22 02/23/22 19:05 19:05 19:05 WBC 6.3 RBC 4.24 Hgb 13.1 Hct 38.9 MCV 91.6 MCH 31.0 MCHC 33.8 RDW 13.7 Plt Count 187 Neut % (Auto) 67.1 Lymph % (Auto) 26.3 [place] % (Auto) 5.0 Eos % (Auto) 0.7 L Baso % (Auto) 0.9 Neut # (Auto) 4200 Lymph # (Auto) [address] [place] # (Auto) 300 Eos # (Auto) 0 Baso # (Auto) 100 PT 10.6 INR 1.0 Sodium 137 Potassium 3.5 Chloride 101 Carbon Dioxide 23 BUN 19 H Creatinine 0.91 Estimated GFR > 60 BUN/Creatinine Ratio 20.9 Glucose 105 Calcium 8.9 Total Bilirubin 0.6 AST 46 H ALT 44 H Alkaline Phosphatase 110 Total Creatine Kinase 75 CK-MB (CK-2) TNP CK-MB (CK-2) Rel Index TNP Troponin I < 0.012 NT-Pro-B Natriuret Pep 594 H Total Protein 7.9 Albumin 4.9 Globulin 3.0 Albumin/Globulin Ratio 1.6 Lipase 118 Assessment & Plan Assessment & Plan narrative: Hypertensive emergency. Multiple medication in the given labetalol. And lisinopril without improvement but did respond well to cardapene. Will continue nicardipine drip. Through the night. Will stop and re-evaluate in a.m. with long-term plan. Patient has had some nausea some vomiting Zofran for that. CT scan showed no central issue. EKG shows no evidence of of cardiac injury. Follow closely. Re-evaluate in a.m.. Fluid and electrolytes. Slightly dehydrated. Given resuscitation in the emergency room I think were stable at this part hope follow. DVT prophylaxis will start Lovenox. GI prophylaxis currently not needed. Code status full. Disposition. Will probably require 48 hours of treatment but will see how she does overnight. Will continue IV treatment at this point in then follow from there. Time Spent With Patient Critical Care time: I spent a total of [] minutes of critical care time on this patient's care today; this time is exclusive of procedural time.
[2022-02-23 23:33] LABS: COVID19 -Nasal RAPID Negative (Negative)
[2022-02-24] VITALS (79 sets, daily range): BP systolic 130–196; BP diastolic 58–95; PULSE 48–104; RESP 12–41; TEMP 36.5–36.6; O2SAT 95–100
[2022-02-24] MEDS: ONDANSETRON 4 MG/2 ML INJ IV ×3 (00:05→07:33)
--- NOTE | 2022-02-24 00:26 | PM.CN.EICU ---
History of Present Illness Consult details Chief complaint: Really Sick Reason for consult: Hypertensive emergency Requesting provider: Melvin Cabrera Consent obtained for tele-infection prevention coordinator care: Yes Patient Location: ICU Provider location (State): [place] Other participants/roles: RN Narrative: Patient is a 66 year old female with history of hypertnesion who presents with haadache. Associated with generalized weakness. On admission, CTH showed incidental meningioma. Started on cardene infusion and admitted to ICU for further management. PFSH Medical History Hypertension Hypokalemia Surgical History H/O gastric bypass History of bilateral breast reduction surgery History of cholecystectomy History of total hysterectomy Social History household members: spouse Smoking Status: Former smoker Current Medications Current Medications Medications: Home Medications amlodipine 5 mg tablet 5 mg PO DAILY 03/12/19 [History Confirmed 03/12/19] clonidine 0.2 mg/24 hr weekly transdermal patch 0.2 mg topical QWEEK 03/12/19 [History Confirmed 03/12/19] diclofenac sodium 1 % topical gel 1 applic topical DIRECTED 03/12/19 [History] lisinopril 5 mg tablet 5 mg PO DAILY #14 tabs 03/12/19 [Rx] Visit Medications (administered) Generic Name Dose Route Start Last Admin Trade Name Freq PRN Reason Stop Dose Admin Nicardipine HCl 25 mg/ Sodium 250 mls @ 50 mls/hr 02/23/22 22:15 02/23/22 23:16 Chloride IV 5 mg/hr TITRATE FANTASMA 50 mls/hr Titration Protocol 5 MG/HR Ondansetron HCl 4 mg 02/23/22 23:41 02/24/22 00:05 Ondansetron 4 Mg/2 Ml Inj IV 4 mg Q2HR PRN Administration Nausea And Vomiting Exam Vital Signs (past 8 hours): - 02/23/22 18:32 02/23/22 19:31 02/23/22 19:30 Temperature 96.8 F L Pulse Rate 88 65 68 Respiratory Rate 18 25 H Blood Pressure 262/129 H 230/108 H Pulse Oximetry 100 98 Oxygen Delivery Method Room Air 02/23/22 19:31 02/23/22 19:31 02/23/22 19:35 Temperature Pulse Rate 66 Respiratory Rate 14 Blood Pressure 230/108 H 225/94 H Pulse Oximetry 98 Oxygen Delivery Method 02/23/22 19:35 02/23/22 19:41 02/23/22 19:41 Temperature Pulse Rate 65 62 Respiratory Rate 15 12 Blood Pressure 203/95 H Pulse Oximetry 98 97 Oxygen Delivery Method 02/23/22 19:58 02/23/22 19:45 02/23/22 19:45 Temperature Pulse Rate 63 62 Respiratory Rate 13 Blood Pressure 189/84 H 198/95 H Pulse Oximetry 98 Oxygen Delivery Method 02/23/22 19:50 02/23/22 19:50 02/23/22 19:55 Temperature Pulse Rate 63 63 Respiratory Rate 16 17 Blood Pressure 199/94 H Pulse Oximetry 98 97 Oxygen Delivery Method 02/23/22 19:55 02/23/22 20:00 02/23/22 20:11 Temperature Pulse Rate 63 61 Respiratory Rate 30 H 17 Blood Pressure 189/84 H Pulse Oximetry 99 99 Oxygen Delivery Method 02/23/22 20:11 02/23/22 20:15 02/23/22 20:15 Temperature Pulse Rate 63 Respiratory Rate 13 Blood Pressure 223/103 H 207/95 H Pulse Oximetry 99 Oxygen Delivery Method 02/23/22 20:20 02/23/22 20:20 02/23/22 20:25 Temperature Pulse Rate 61 59 L Respiratory Rate 15 16 Blood Pressure 207/96 H Pulse Oximetry 98 98 Oxygen Delivery Method 02/23/22 20:25 02/23/22 20:30 02/23/22 20:30 Temperature Pulse Rate 60 Respiratory Rate 16 Blood Pressure 202/96 H 209/97 H Pulse Oximetry 98 Oxygen Delivery Method 02/23/22 20:35 02/23/22 20:35 02/23/22 20:40 Temperature Pulse Rate 59 L Respiratory Rate 16 Blood Pressure 201/92 H 196/95 H Pulse Oximetry 97 Oxygen Delivery Method 02/23/22 20:40 02/23/22 20:45 02/23/22 20:45 Temperature Pulse Rate 61 60 Respiratory Rate 15 15 Blood Pressure 192/93 H Pulse Oximetry 98 97 Oxygen Delivery Method 02/23/22 21:12 02/23/22 20:50 02/23/22 20:50 Temperature Pulse Rate 60 65 Respiratory Rate 16 Blood Pressure 206/93 H 181/98 H Pulse Oximetry 99 Oxygen Delivery Method 02/23/22 20:55 02/23/22 20:55 02/23/22 21:00 Temperature Pulse Rate 63 Respiratory Rate 10 L Blood Pressure 171/88 H 206/93 H Pulse Oximetry 97 Oxygen Delivery Method 02/23/22 21:00 02/23/22 22:52 02/23/22 21:30 Temperature Pulse Rate 63 76 61 Respiratory Rate 12 14 Blood Pressure 150/74 H Pulse Oximetry 98 97 Oxygen Delivery Method 02/23/22 21:58 02/23/22 21:58 02/23/22 22:00 Temperature Pulse Rate 82 68 Respiratory Rate 20 9 L Blood Pressure 227/109 H Pulse Oximetry 99 98 Oxygen Delivery Method 02/23/22 22:30 02/23/22 22:40 02/23/22 22:40 Temperature Pulse Rate 63 66 Respiratory Rate 24 20 Blood Pressure 247/108 H Pulse Oximetry 98 98 Oxygen Delivery Method 02/23/22 22:41 02/23/22 22:41 02/23/22 22:42 Temperature Pulse Rate 65 Respiratory Rate 14 Blood Pressure 222/103 H 203/100 H Pulse Oximetry 99 Oxygen Delivery Method 02/23/22 22:42 02/23/22 22:43 02/23/22 22:43 Temperature Pulse Rate 65 67 Respiratory Rate 14 13 Blood Pressure 195/96 H Pulse Oximetry 99 98 Oxygen Delivery Method 02/23/22 22:44 02/23/22 22:44 02/23/22 22:45 Temperature Pulse Rate 67 71 Respiratory Rate 25 H 19 Blood Pressure 178/88 H Pulse Oximetry 98 98 Oxygen Delivery Method 02/23/22 22:45 02/23/22 22:50 02/23/22 22:50 Temperature Pulse Rate 80 Respiratory Rate 21 Blood Pressure 174/72 H 150/74 H Pulse Oximetry 100 Oxygen Delivery Method 02/23/22 22:55 02/23/22 22:55 02/23/22 23:00 Temperature Pulse Rate 70 Respiratory Rate 32 H Blood Pressure 154/80 H 139/65 Pulse Oximetry 99 Oxygen Delivery Method 02/23/22 23:00 02/23/22 23:14 02/23/22 23:05 Temperature Pulse Rate 80 62 Respiratory Rate 8 L 20 Blood Pressure 160/72 H 130/62 Pulse Oximetry 96 100 Oxygen Delivery Method Room Air 02/23/22 23:05 02/23/22 23:10 02/23/22 23:10 Temperature Pulse Rate 75 64 Respiratory Rate 18 34 H Blood Pressure 160/72 H Pulse Oximetry 97 98 Oxygen Delivery Method 02/23/22 23:15 02/23/22 23:15 Temperature Pulse Rate 75 Respiratory Rate 7 L Blood Pressure 142/64 H Pulse Oximetry 96 Oxygen Delivery Method Oxygen Delivery Method Room Air Objective Labs Result Diagrams: 02/23/22 19:05 02/23/22 19:05 Labs: Laboratory Results - last 24 hr 02/23/22 02/23/22 02/23/22 19:05 19:05 19:05 WBC 6.3 RBC 4.24 Hgb 13.1 Hct 38.9 MCV 91.6 MCH 31.0 MCHC 33.8 RDW 13.7 Plt Count 187 Neut % (Auto) 67.1 Lymph % (Auto) 26.3 Bertie % (Auto) 5.0 Eos % (Auto) 0.7 L Baso % (Auto) 0.9 Neut # (Auto) 4200 Lymph # (Auto) 1600 Bertie # (Auto) 300 Eos # (Auto) 0 Baso # (Auto) 100 PT 10.6 INR 1.0 Sodium 137 Potassium 3.5 Chloride 101 Carbon Dioxide 23 BUN 19 H Creatinine 0.91 Estimated GFR > 60 BUN/Creatinine Ratio 20.9 Glucose 105 Calcium 8.9 Total Bilirubin 0.6 AST 46 H ALT 44 H Alkaline Phosphatase 110 Total Creatine Kinase 75 CK-MB (CK-2) TNP CK-MB (CK-2) Rel Index TNP Troponin I < 0.012 NT-Pro-B Natriuret Pep 594 H Total Protein 7.9 Albumin 4.9 Globulin 3.0 Albumin/Globulin Ratio 1.6 Lipase 118 SARS-CoV-2 (PCR) 02/23/22 23:11 WBC RBC Hgb Hct MCV MCH MCHC RDW Plt Count Neut % (Auto) Lymph % (Auto) Bertie % (Auto) Eos % (Auto) Baso % (Auto) Neut # (Auto) Lymph # (Auto) Bert[place] # (Auto) Eos # (Auto) Baso # (Auto) PT INR Sodium Potassium Chloride Carbon Dioxide BUN Creatinine Estimated GFR BUN/Creatinine Ratio Glucose Calcium Total Bilirubin AST ALT Alkaline Phosphatase Total Creatine Kinase CK-MB (CK-2) CK-MB (CK-2) Rel Index Troponin I NT-Pro-B Natriuret Pep Total Protein Albumin Globulin Albumin/Globulin Ratio Lipase SARS-CoV-2 (PCR) Negative Assessment & Plan Assessment & Plan narrative: NEURO: # Decondition -- Seek PT/OT and OOB as tolerate # Meningioma -- Noted on CTH -- Recommend NSG consultation for further evaluation RESP: -- On room air -- Encourage IS and OOB as tolerated CVS: # HTN emergency -- On cardene infusion -- Recommend restarting lisinopril and beta stephani -- Goal SBP 180-220 to avoid over corection ENDO: -- Goal BS < 180 D/w RN at bedside. Time Spent With Patient Critical Care time: I spent a total of 34 minutes of critical care time on this patient's care today; this time is exclusive of procedural time.
[2022-02-24] MEDS: PROCHLORPERAZINE 10 MG/2 ML VIAL 5 MG IV (01:07)
[2022-02-24 05:18] LABS: BUN Creatinine Ratio 27.6 (6-22); Blood Urea Nitrogen 16 mg/dL (7-17); Calcium 8.5 mg/dL (8.4-10.2); Carbon Dioxide 25 mmol/L (22-32); Chloride 106 mmol/L (98-107); Estimated Glomerular Filt Rate > 60 mL/min (>60); Glucose 125 mg/dL (80-110); HEMOLYSIS < 15 (0-50); Potassium 3.7 mmol/L (3.4-5.1); Sodium 137 mmol/L (137-145)
--- NOTE | 2022-02-24 05:22 | PC.NURSE ---
Color Receiver Note: At 2300, patient brought in from ED by stretcher, accompanied by RN, patient was awake and appears uncomfortable, complained of nausea and about to puke, alert and orientedx4, denies pain or shortness of breath. Patient placed to continuous cardiac monitoring, on cardene drip at 50mls/hr. Lungs are clear bilaterally. Active bowel tones noted. Skin is good and intact. Patient was seen by tele ICU MD Rahman, ordered stat dose of compazine. Cardene drip titrated down to 25mls/hr as SBP dropped to 130s from 170s. Sinus rhythm at the monitor. Patient was able to to get up with one person assist and use bedside commode. Call farmer within reach. Safety precautions observed and maintained. Will continue to monitor.
--- NOTE | 2022-02-24 07:09 | PM.ICURNDS ---
- :: This patient was seen via real time interactive two-way audiovisual telecommunication. pt on cardene gtt, suspect her sx are likely related to rebound htn. I restarted her PO meds, cont to drip and wean off as tolerated. f/u TTE, monitor UO, trend bmp, dvt ppx. if her bp remains labile will add more agents
[2022-02-24] MEDS: LABETALOL 100 MG TABLET PO (08:03)
[2022-02-24] MEDS: ENOXAPARIN 40 MG/0.4 ML SYRINGE SUBCUT (08:03)
[2022-02-24] MEDS: ACETAMINOPHEN 325 MG TABLET 650 MG PO (08:03)
[2022-02-24] MEDS: lisinopriL 20 MG TABLET PO (08:03)
--- NOTE | 2022-02-24 08:29 | P.PN_ITS ---
Subjective Subjective Date Patient Seen: 02/24/22 Interval history: Continues to have headache and nausea today on cardene infusion but does feel slightly better. CT head shows left sided mass lesion near her auditory canal. She denies chest pain or shortness of breath. Denies LE swelling. She improved slightly with meclizine, but continues to feel symptomatic when on her L side. Exam Vital Signs (past 8 hours): - 02/24/22 00:47 02/24/22 00:30 02/24/22 01:00 Temperature Pulse Rate 48 L Respiratory Rate 29 H Blood Pressure 146/68 H Pulse Oximetry 100 Oxygen Delivery Method Room Air 02/24/22 01:00 02/24/22 01:15 02/24/22 01:15 Temperature Pulse Rate 72 71 Respiratory Rate 20 17 Blood Pressure 142/69 H Pulse Oximetry 97 95 Oxygen Delivery Method 02/24/22 01:30 02/24/22 01:30 02/24/22 01:45 Temperature Pulse Rate 72 75 Respiratory Rate 18 16 Blood Pressure 140/65 Pulse Oximetry 95 95 Oxygen Delivery Method 02/24/22 01:45 02/24/22 02:00 02/24/22 02:00 Temperature Pulse Rate 69 Respiratory Rate 16 Blood Pressure 148/69 H 141/60 H Pulse Oximetry 95 Oxygen Delivery Method 02/24/22 02:15 02/24/22 02:15 02/24/22 02:30 Temperature Pulse Rate 72 Respiratory Rate 16 Blood Pressure 143/67 H 145/69 H Pulse Oximetry 98 Oxygen Delivery Method 02/24/22 02:30 02/24/22 02:45 02/24/22 02:45 Temperature Pulse Rate 68 71 Respiratory Rate 14 14 Blood Pressure 157/75 H Pulse Oximetry 96 98 Oxygen Delivery Method 02/24/22 03:00 02/24/22 03:00 02/24/22 03:15 Temperature Pulse Rate 72 67 Respiratory Rate 16 16 Blood Pressure 157/72 H Pulse Oximetry 97 96 Oxygen Delivery Method 02/24/22 03:15 02/24/22 03:30 02/24/22 03:30 Temperature Pulse Rate 65 Respiratory Rate 16 Blood Pressure 130/62 158/72 H Pulse Oximetry 96 Oxygen Delivery Method 02/24/22 03:45 02/24/22 03:45 02/24/22 04:00 Temperature Pulse Rate 69 Respiratory Rate 15 Blood Pressure 150/70 H 178/82 H Pulse Oximetry 96 Oxygen Delivery Method 02/24/22 04:00 02/24/22 04:15 02/24/22 04:15 Temperature Pulse Rate 69 66 Respiratory Rate 15 14 Blood Pressure 172/77 H Pulse Oximetry 99 97 Oxygen Delivery Method 02/24/22 05:00 02/24/22 04:30 02/24/22 04:30 Temperature 97.7 F Pulse Rate 69 Respiratory Rate 16 Blood Pressure 163/71 H Pulse Oximetry 96 Oxygen Delivery Method 02/24/22 04:45 02/24/22 04:45 02/24/22 05:00 Temperature Pulse Rate 69 104 H Respiratory Rate 14 18 Blood Pressure 149/72 H Pulse Oximetry 97 96 Oxygen Delivery Method 02/24/22 05:01 02/24/22 05:01 02/24/22 05:30 Temperature Pulse Rate 98 H 72 Respiratory Rate 14 14 Blood Pressure 178/88 H Pulse Oximetry 97 96 Oxygen Delivery Method 02/24/22 05:34 02/24/22 05:34 02/24/22 05:45 Temperature Pulse Rate 71 Respiratory Rate 13 Blood Pressure 155/73 H 155/76 H Pulse Oximetry 97 Oxygen Delivery Method 02/24/22 05:45 02/24/22 06:00 02/24/22 06:00 Temperature Pulse Rate 72 77 Respiratory Rate 14 16 Blood Pressure 157/77 H Pulse Oximetry 96 97 Oxygen Delivery Method 02/24/22 06:15 02/24/22 06:15 02/24/22 06:30 Temperature Pulse Rate 76 Respiratory Rate 14 Blood Pressure 142/66 H 131/58 L Pulse Oximetry 96 Oxygen Delivery Method 02/24/22 06:30 02/24/22 06:45 02/24/22 06:45 Temperature Pulse Rate 72 71 Respiratory Rate 14 14 Blood Pressure 142/65 H Pulse Oximetry 98 98 Oxygen Delivery Method 02/24/22 07:00 02/24/22 07:00 02/24/22 08:03 Temperature Pulse Rate 68 Respiratory Rate 14 Blood Pressure 135/65 138/60 Pulse Oximetry 98 Oxygen Delivery Method 02/24/22 08:03 02/24/22 07:15 02/24/22 07:15 Temperature Pulse Rate 69 84 Respiratory Rate 13 Blood Pressure 138/60 181/88 H Pulse Oximetry 98 Oxygen Delivery Method 02/24/22 07:30 02/24/22 07:30 Temperature Pulse Rate 72 Respiratory Rate 18 Blood Pressure 145/66 H Pulse Oximetry 97 Oxygen Delivery Method Oxygen Delivery Method Room Air Oxygen Flow Rate 0 Narrative Exam Narrative: General:? Patient is well developed and well nourished, in no distress at this time. HEENT:? Normocephalic, atraumatic, extraocular muscles intact, oral pharynx is clear and mucous membranes are moist. Neck: supple and symmetric, trachea is midline, no cervical adenopathy. Negative for JVD Chest:? Normal AP diameter and contour without kyphoscoliosis, no tachypnea, equal chest rise bilaterally. Lungs:? CTA b/l no wheezing rhonchi or rales. Cardio:?RRR no m/r/g. Abdomen: S NT ND. No CVA tenderness. Musculoskeletal:? Muscle strength and tone are equal within normal limits, no deformity. Extremities: No edema or joint effusions. No cyanosis or clubbing. Skin:? Pale,? Warm to touch,dry and intact without rashes, ulcerations or petechiae.? Neuro:? Alert and orientated x3,? sensation to touch intact in all extremities, no gross deficits noted of cranial nerves. Psych:? Patient has a well-kept appearance, appropriate affect, mental status attitude thought context and judgment are appropriate for age. Objective Labs Result Diagrams: 02/23/22 19:05 02/24/22 04:56 Labs: Laboratory Results - last 24 hr 02/23/22 02/23/22 02/23/22 19:05 19:05 19:05 WBC 6.3 RBC 4.24 Hgb 13.1 Hct 38.9 MCV 91.6 MCH 31.0 MCHC 33.8 RDW 13.7 Plt Count 187 Neut % (Auto) 67.1 Lymph % (Auto) 26.3 [place] % (Auto) 5.0 Eos % (Auto) 0.7 L Baso % (Auto) 0.9 Neut # (Auto) 4200 Lymph # (Auto) 1600 [place] # (Auto) 300 Eos # (Auto) 0 Baso # (Auto) 100 PT 10.6 INR 1.0 Sodium 137 Potassium 3.5 Chloride 101 Carbon Dioxide 23 BUN 19 H Creatinine 0.91 Estimated GFR > 60 BUN/Creatinine Ratio 20.9 Glucose 105 Calcium 8.9 Total Bilirubin 0.6 AST 46 H ALT 44 H Alkaline Phosphatase 110 Total Creatine Kinase 75 CK-MB (CK-2) TNP CK-MB (CK-2) Rel Index TNP Troponin I < 0.012 NT-Pro-B Natriuret Pep 594 H Total Protein 7.9 Albumin 4.9 Globulin 3.0 Albumin/Globulin Ratio 1.6 Lipase 118 Nasal Screen MRSA (PCR) SARS-CoV-2 (PCR) 02/23/22 02/23/22 02/24/22 23:11 23:45 04:56 WBC RBC Hgb Hct MCV MCH MCHC RDW Plt Count Neut % (Auto) Lymph % (Auto) [place] % (Auto) Eos % (Auto) Baso % (Auto) Neut # (Auto) Lymph # (Auto) [place] # (Auto) Eos # (Auto) Baso # (Auto) PT INR Sodium 137 Potassium 3.7 Chloride 106 Carbon Dioxide 25 BUN 16 Creatinine 0.58 Estimated GFR > 60 BUN/Creatinine Ratio 27.6 H Glucose 125 H Calcium 8.5 Total Bilirubin AST ALT Alkaline Phosphatase Total Creatine Kinase CK-MB (CK-2) CK-MB (CK-2) Rel Index Troponin I NT-Pro-B Natriuret Pep Total Protein Albumin Globulin Albumin/Globulin Ratio Lipase Nasal Screen MRSA (PCR) Negative for mrsa SARS-CoV-2 (PCR) Negative PFSH Medical History Hypertension Hypokalemia Surgical History H/O gastric bypass History of bilateral breast reduction surgery History of cholecystectomy History of total hysterectomy Social History household members: spouse Smoking Status: Former smoker Assessment & Plan Assessment & Plan narrative: Hypertensive emergency - continue to advance oral medications, wean from nicardipine infusion. Currently on lisinopril and labetalol. L intracranial mass - possible meningioma - consider MRI, neurosurgical consultation, unclear if symptoms are related to BP or brain mass at this time. - trial meclizine to see if symptoms can be controlled, ideally would have outpatient neurosurgery consultation, but if symptoms unable to be controlled will discuss possible inpatient transfer. Code status full. Dispo: remains ICU on cardene infusion, can downgrade to floor when off cardene for multiple hours. I spent 45 minutes providing critical care management this patient. This excludes time spent in performing separately billed procedures. Time Spent With Patient Critical Care time: I spent a total of [] minutes of critical care time on this patient's care today; this time is exclusive of procedural time. Quality VTE Deep Vein Thrombosis/Pulmonary Embolism Present on Admission: No
--- NOTE | 2022-02-24 13:20 | CM.DANOTE ---
Patient is a 66 yo female who was admitted on 02/23/22 for Really Sick. Pt has [employer] for insurance and her PCP is not listed. EMR was reviewed. Per MD, pt admitted for hypertensive emergency and has ongoing gagging and vasovagel responses during gagging. MD to attempt Neurologist Consult due to the mass on pt's brain near her ear that may be contributing to some of her symptoms. Pt resides in [place] with her spouse and is active and independent at baseline and drives. Pt denies any hx of HH or SNF but confirms she still feels somewhat nauseous. Pt and spouse do not currently anticipate any d/c planning needs at discharge but pt is just hopeful to feel better and have more medical answers. Spouse plans to provide transport at d/c. Plan: SW to follow to confirm safe plan of d/c to home with spouse assist when medically stable and any further identified discharge planning needs. EMILY Toussaint Discharge Planning/Care Management CM Discharge Assessment Start: 02/24/22 13:18 Freq: Status: Active Protocol: Document 02/24/22 13:19 BF (Rec: 02/24/22 13:20 BF [id number]) Discharge Planning Assessment Assigned Patrol Man EMILY Gunderson DPOA/Assigned Designee Name spouse Kirill Contact Information [phone] Advance Directives? No Advance Directives on File No History Provided By Patient,Medical Record Has Patient been admitted in last 30 No days? Prior Living Arrangements House Household Members spouse Type of transporation used prior to Drives own vehicle admit Independent with ADL's Yes Is patient alert and oriented? Yes Caregiver for Another No Barriers to Discharge No Discharge Plan Home Transportation Arrangement Spouse bedside and plans to provide transport at d/c Referrals Initiated None needed Whiteboard Updated in Patient Room with Yes name and ext. # of Patrol Man Review Status In Process Please Provide Date Initial DC 02/24/22 Assessment Was Performed Next Review Type Continued Stay Review
[2022-02-24] MEDS: MECLIZINE HCL 12.5 MG TABLET 25 MG PO (13:57)
[2022-02-24] MEDS: LABETALOL 100 MG TABLET 50 MG PO (21:03)
[2022-02-24] MEDS: PANTOPRAZOLE DR 20 MG TABLET PO (21:06)
[2022-02-25] VITALS (11 sets, daily range): BP systolic 136–202; BP diastolic 64–86; PULSE 50–64; RESP 19–29; TEMP 36.1–36.8; O2SAT 96–98
--- NOTE | 2022-02-25 05:37 | PC.NURSE ---
End of Shift Note. Care of patient from [id number]. Patient AAOX3, uses call light for assist. Denies pain, no complaints of nausea. Up to BSC with SBA. SBP >185 at beginning of shift, HR 50s sinus tristen, provider notified, PRN hydralazine ordered and Labatolol oral BID dose decreased to 50mg. Before PRN hydralazine given recheck SBP <160, hydralazine was not given.
[2022-02-25] MEDS: hydroCHLOROthiazide 25 MG TABLET PO (08:15)
[2022-02-25] MEDS: LABETALOL 100 MG TABLET 50 MG PO (08:15)
[2022-02-25] MEDS: PANTOPRAZOLE DR 20 MG TABLET PO (08:15)
[2022-02-25] MEDS: ENOXAPARIN 40 MG/0.4 ML SYRINGE SUBCUT (08:16)
[2022-02-25] MEDS: lisinopriL 20 MG TABLET PO (08:16)
--- NOTE | 2022-02-25 14:28 | CM.DPNOTE ---
Addendum entered by Mercy Hyatt R.N. 02/25/22 15:57: Patient is discharged. Spouse in room and will transport home. Nurse provided phone numbers of medical provider groups for PCPs. Patient states Dr Richey may be setting up a provider (?). SEJ Original Note: Discharge Planning Note: Met with patient and spouse. Neither patient nor spouse have PCPs due to their PCPs have left [facility]. Provided names of local provider groups in [place] which they are requesting. Per today's nurse, patient's blood pressure better, continues with vertigo, she is on Meclizine. Patient presents as fatigued. Plan: Plan is to return home with spouse who will transport him in private vehicle when medically stable. Neelam Hyatt RN, DCP
--- NOTE | 2022-02-25 15:06 | P.DS_ITS ---
History of Present Illness History of Present Illness Date Patient Seen: 02/25/22 Chief complaint: Really Sick Narrative: Per Dr. Cabrera, Patient is a 66-year-old female who apparently was in her usual state of health several months. Patient has had a long history of hypertension. She states she has tried different medication which did seem to really help. She really did want to take any med [place] pills last lisinopril which may be worked but she did want to continue to LE that switch to a clonidine patch which did really functionally help and she quit using that also. For the last week she has been having headache and has been. To the point where she really could not get down the hallway. She states that she thought it was her new glasses and she took goes off at a little better. She did not notice any chest pain shortness of breath diaphoresis or other change. Patient otherwise has just been feeling tired. Not had any No exertion. Orthopnea PND. Her headache has been somewhat of but diffuse headache. No visual changes. Seems to come and go. Not really responsive to anti-inflammatories or Tylenol she has had a little bit of nausea but no vomiting. Has not been as hungry. Abdominal discomfort change in bowel movements or urinary complaints. No significant family history. No other changes. Discharge Providers Provider Date of admission: 02/23/22 22:37 Discharge Date: 02/25/22 Primary care physician: Doctor Alba MD Consults: 02/23/22 23:41 Consult to Tele-oracle ebs architect Routine Comment: Consulting Provider: [employer] Reason for consultation: Sawmilling Operator services Discharge provider: Jitendra Richey DO Summary Hospital Course Discharge Diagnosis: Hypertensive emergency ? L intracranial mass Hospital Course: This is a 66-year-old female who was admitted with 1 week of dizziness, nausea, and occasional vomiting. She was very hypertensive in the ER, initially improved with blood pressure medications so she was started on nicardipine infusion for presumed hypertensive emergency. CT scan of her head also showed a left-sided intracranial mass, possibly a meningioma, near her left internal auditory canal. Her symptoms mildly improved with nicardipine infusion and initiation of oral antihypertensives. Started on meclizine and Zofran with additional improvement in nausea and ambulation. It is unclear at this time if her symptoms were related to hypertension or intracranial mass, or a combination of the two. I recommend further continuation of care with her primary care provider. Her blood pressures were improved the day of discharge. Recommend brain MRI as an outpatient for further evaluation of her mass depending on continued symptoms and possible referral to neurosurgery. She was started on 3 antihypertensives including lisinopril, labetalol, and hydrochlorothiazide with overall improvement at the time of discharge. Time Spent with Patient Time spent: Greater than 30 minutes Exam Vital Signs (past 8 hours): - 02/25/22 07:51 02/25/22 07:52 02/25/22 11:00 Temperature Pulse Rate 62 Respiratory Rate 20 Blood Pressure 202/86 H 184/81 H Pulse Oximetry 96 Oxygen Delivery Method Oxygen Flow Rate 02/25/22 11:50 02/25/22 08:22 Temperature 98.3 F Pulse Rate 56 L Respiratory Rate 23 Blood Pressure 173/84 H Pulse Oximetry 97 Oxygen Delivery Method Room Air Oxygen Flow Rate 0 Oxygen Delivery Method Room Air Oxygen Flow Rate 0 Objective Labs Result Diagrams: 02/23/22 19:05 02/24/22 04:56 PFSH Medical History Hypertension Hypokalemia Surgical History H/O gastric bypass History of bilateral breast reduction surgery History of cholecystectomy History of total hysterectomy Social History household members: spouse Smoking Status: Former smoker Discharge Plan Discharge Plan Patient Disposition: Home Provider Discharge Comment: You were admitted to the hospital with dizziness. It may have been due to your elevated BP or possibly a brain lesion. You need to follow up with a PCP and to establish care as soon as possible for further evaluation of this lesion with possible MRI and possible neurosurgery referral depending on your symptoms. If you have difficulty walking, worsening nausea, or imbalance please return to the ER for evaluation. Discharge orders & Medications Prescriptions: New ondansetron 4 mg tablet,disintegrating 4 mg PO Q8H PRN (Reason: nausea and vomiting) 30 Days Qty: 30 0RF meclizine 25 mg tablet 25 mg PO QID PRN (Reason: dizziness) 30 Days Qty: 30 0RF labetalol 100 mg tablet 50 mg PO BID 30 Days Qty: 30 0RF lisinopril 40 mg tablet 40 mg PO DAILY 30 Days Qty: 30 0RF hydrochlorothiazide 25 mg tablet 25 mg PO DAILY 30 Days Qty: 30 0RF Follow up/Referrals: Alba,MD Vera [Primary Care Provider] - 1 Week (Call to establish care with any of the following clinics: 1) [address]: 2) [facility]: 3) [facility]: ) Diet/Activity/Treatments Diet: Diet as Tolerated Activity: As tolerated Visit Report/Discharge Packet Instructions: High Blood Pressure, Meclizine, Hydrochlorothiazide, Labetalol, Lisinopril Discharge Data Primary Care Provider: Doctor Alba Quality VTE Deep Vein Thrombosis/Pulmonary Embolism Present on Admission: No
== END 2022-02-25 16:00 | disposition home or self-care (01) | DRG 305 ==
LOC: ED 22:18 → AC 22:38 → ICU 23:11
PROVIDERS: Admitting Provider Family Medicine; Emergency Provider Emergency Medicine; Referring Provider Emergency Medicine; Visit Provider Internal Medicine
DX: I16.1 Hypertensive emergency (principal); R93.89 Abnormal findings on diagnostic imaging of other specified body structures; E86.0 Dehydration; R51.9 Headache, unspecified; H53.8 Other visual disturbances; I10 Essential (primary) hypertension; R42 Dizziness and giddiness; Z20.822 Contact with and (suspected) exposure to COVID-19; Z87.891 Personal history of nicotine dependence
CPT/HCPCS: 36415; 70450; 71045; 80048; 80053; 82550; 83690; 83880; 84484; 85025; 85610; 87635; 87797; 93005; 96361; 96365; 96375; 99284; 99291; C9803; J0780; J1650; J2405

== ENCOUNTER → 2022-03-13 17:53 | Outpatient (CLI) | payer MEDICARE, OTHER, SELFPAY ==
[2022-02-23 23:51] VITALS: BMI 24.9
--- NOTE | 2022-03-13 | DI.MRI.S_ITS ---
PROCEDURE: MR HEAD/BRAIN WO/W CON INDICATIONS: BRAIN MASS TECHNIQUE: Noncontrast axial T1 spin echo, axial T2 fast spin echo, sagittal and axial FLAIR, coronal T2 fast spin echo, axial gradient echo, axial diffusion and ADC through the brain. After the administration of contrast, axial and coronal and sagittal T1 spin echo with fat saturation through the brain. COMPARISON: [facility], CT, CT HEAD/BRAIN WO CON, 02/23/2022, 20:05. FINDINGS: Image quality: Excellent. CSF spaces: Basal cisterns are patent. No extra-axial fluid collections. Ventricles are normal in size and shape. Brain: An extra-axial mass is again seen along the lateral aspect of the left posterior cranial fossa. This mass demonstrates moderate relatively uniform internal enhancement measures 2.5 x 2.1 x 2.2 cm. It demonstrates relatively low signal on T2 weighted images. No additional intracranial masses or abnormal enhancement can be seen. No midline shift. There is cerebral volume loss for age. There is periventricular white matter chronic small vessel ischemic change. The brainstem appears normal. Diffusion-weighted images demonstrate no acute ischemic insults. No chronic ischemic insults. Normal intravascular flow voids are present. Skull and face: Calvarial marrow is normal in signal. Orbits appear normal. Sinuses: Sinuses and mastoids appear clear. IMPRESSION: 2.5 cm extra-axial left posterior fossa mass seen laterally, which represents a meningioma until proven otherwise. Dictated by: Vasyl Lopez M.D. on 03/14/2022 at 8:23 Approved by: Vasyl Lopez M.D. on 03/14/2022 at 8:25
== END ==
PROVIDERS: Referring Provider Family Medicine; Visit Provider Family Medicine
DX: D32.0 Benign neoplasm of cerebral meninges
CPT/HCPCS: 70553; A9579

== ENCOUNTER → 2022-04-23 | Outpatient (CLI) | payer MEDICARE, OTHER, SELFPAY ==
[2022-02-23 23:51] VITALS: BMI 24.9
--- NOTE | 2022-04-23 | DI.ECHO.S_ITS ---
[facility]---------+ [facility] +---------+ : : [address] : : : : [id number] : : : : Phone: [phone]+ Echocardiogram Report + + :Name: BLAS GURROLA Study Date: 04/23/2022 Height: 61 in : :[facility] ReadingLocation: Weight: 132 lb : : Gender: Female BSA: 1.6 m2 : :: 1955 Age: 66 yrs BP: 144/87 mmHg: :Reason For Study: HYPERTENSION : :Ordering Physician: MARLYN COTTER : :Anna NEVILLE Performed By: Elenita Bhandari : :Referring: MARLYN COTTER : + + Interpretation Summary The ejection fraction is estimated to be 60-65%. Diastolic parameters suggest probable normal left ventricular diastolic function and normal filling pressures. The right ventricle is normal in size and function. No significant valvular abnormalities. Unable to estimate PASP. Procedure: A two-dimensional transthoracic echocardiogram with color flow and Doppler was performed. The study quality was technically adequate. There is no prior echocardiogram noted for this patient. The patient was in sinus bradycardia with heart rates between 54-66 bpm during the exam. Left Ventricle: The left ventricle is normal in size and wall thickness. The ejection fraction is estimated to be 60-65%. Left ventricular global longitudinal strain average is -21.9%. Diastolic parameters suggest probable normal left ventricular diastolic function and normal filling pressures. Right Ventricle: The right ventricle is normal in size and function. Atria: The left atrial size is normal. Right atrial size is normal. There is no Doppler evidence for an interatrial shunt. Mitral Valve: The mitral valve is normal in structure and function. There is mild mitral annular calcification. There is trace mitral regurgitation. Aortic Valve: The aortic valve is trileaflet. The aortic valve opens well. There is no aortic valve stenosis. No aortic regurgitation is present. Tricuspid Valve: The tricuspid valve is normal in structure and function. There is trace tricuspid regurgitation. Pulmonary artery pressures cannot be estimated because of the lack of a measurable TR jet velocity. Pulmonic Valve: The pulmonic valve is not well visualized. There is no pulmonic valvular regurgitation. Great Vessels: The aortic root is normal size. The dimensions of the ascending aorta are normal. The IVC is of normal diameter and collapses greater than 50% with a sniff. This suggests a low right atrial pressure of 3 mm Hg. Pericardium/ Pleura There is no pericardial effusion. There is no pleural effusion. MMode/2D Measurements & Calculations LVIDd: 5.1 cm LVOT diam: 2.0 cm LVIDs: 3.7 cm Ao root diam: 3.3 cm FS: 26.8 % asc Aorta Diam: 3.3 cm EPSS: 0.75 cm Ao Arch Diam (Prox Trans): 2.5 cm IVSd: 0.84 cm LVPWd: 0.77 cm LV gore. diameter/BSA (cm/m^2): 3.2 LV sys. diameter/BSA (cm/m^2): 2.4 LA A2 area: 17.8 cm2 RA long axis: 4.5 cm LA A4 area: 13.3 cm2 RA area: 12.8 cm2 LA length (vol): 4.6 cm RA vol: 30.9 ml LA vol: 43.9 ml RA : 19.5 ml/m2 LA vol index: 27.7 ml/m2 IVC diam: 1.2 cm RVD1 (basal): 3.2 cm RVD2 (mid): 2.9 cm TAPSE: 2.1 cm Doppler Measurements & Calculations Ao V2 max: 142.3 cm/sec LVOT Max Ryan: 115.8 cm/sec Ao V2 mean: 99.5 cm/sec LV V1 max P.4 mmHg Ao max P.1 mmHg LV V1 VTI: 26.6 cm Ao mean P.3 mmHg MARTHA(I,D): 2.6 cm2 Ao V2 VTI: 32.9 cm MARTHA(V,D): 2.6 cm2 sev ratio: 0.81 MARTHA indexed to BSA (cm^2/m^2): 1.6 MV E max ryan: 81.3 cm/sec PA V2 max: 90.6 cm/sec MV A max ryan: 102.8 cm/sec PA V2 mean: 63.1 cm/sec MV E/A: 0.79 PA mean P.8 mmHg Med Peak E' Ryan: 5.2 cm/sec PA pr(Accel): 25.9 mmHg E/E' med: 15.7 Lat Peak E' Ryan: 8.5 cm/sec E/E' lat: 9.6 E/e' average: 12.6 MV dec time: 0.25 sec SVLVOT): 84.0 ml Reading Physician:12:17 PM
--- NOTE | 2022-04-23 | DI.US.S_ITS ---
PROCEDURE: US ABD AORTA ANEURYSM SCREEN INDICATIONS: HYPERTENSION TECHNIQUE: Real time scanning was performed of the aorta and iliac arteries, with image documentation. COMPARISON: None. FINDINGS: Aorta: Proximal aortic diameter measures 2.1 cm. Mid-aorta measures 1.9 cm. Distal aortic diameter is 1.5 cm. Iliac arteries: Right common iliac artery measures 1 cm. Left common iliac artery measures 0.9 cm. IMPRESSION: Negative for aneurysm. Dictated by: Vasyl Lopez M.D. on 04/23/2022 at 10:47 Approved by: Vasyl Lopez M.D. on 04/23/2022 at 10:47
--- NOTE | 2022-04-23 | DI.MG.S_ITS ---
BILATERAL DIGITAL SCREENING MAMMOGRAM 3D/2D WITH CAD: 04/23/2022 CLINICAL: Routine screening. Comparison is made to exams dated: 09/24/2011 mammogram, 01/12/2001 mammogram, and 01/20/2000 mammogram - outside location. Both breasts are almost entirely fatty (category a/<25% glandular tissue). Current study was also evaluated with a Computer Aided Detection (CAD) system. There is a benign lymph node in the left breast. No significant masses, calcifications, or other findings are seen in either breast. There has been no significant interval change. IMPRESSION: BENIGN There is no mammographic evidence of malignancy. A 1 year screening mammogram is recommended. Based on the Tyrer Cuzick model (a risk assessment model) the patient's lifetime risk is 3.1% and her 10 year risk is 1.6%. According to the ACR, ACS, and NCCN guidelines, an annual breast MRI exam along with mammogram is recommended if the patient's lifetime risk is 20% or greater. This exam was interpreted at Station ID: [id number]. NOTE: For mammograms, a report in lay terms will be sent to the patient. Approximately 15% of breast malignancies will not be visualized mammographically. In the management of a palpable breast mass, a negative mammogram must not discourage biopsy of a clinically suspicious lesion. Electronically Signed By: Paige moya/shellie:05/03/2022 14:51:23 letter sent: Normal Exam ACR BI-RADS Category 2: Benign Finding(s) 3342F
== END ==
PROVIDERS: PCP Family Medicine; Referring Provider Family Medicine; Visit Provider Family Medicine
DX: Z12.31 Encounter for screening mammogram for malignant neoplasm of breast (principal); I10 Essential (primary) hypertension; G93.89 Other specified disorders of brain; I16.9 Hypertensive crisis, unspecified
CPT/HCPCS: 76706; 77063; 77067; 93306; 93356

== ENCOUNTER → 2022-05-28 08:26 | Outpatient (CLI) | payer MEDICARE, OTHER, SELFPAY ==
[2022-02-23 23:51] VITALS: BMI 24.9
[2022-05-28 10:25] LABS: Hemoglobin A1C% w Est Avg Glu 5.3 % (4.0-6.0)
[2022-05-28 10:58] LABS: Vitamin D 25 Hydroxy (D3) 39.8 ng/mL (30.0-100.0)
[2022-05-28 11:35] LABS: Vitamin B12 666 pg/mL (239-931)
[2022-05-28 13:21] LABS: Folate 14.5 ng/mL (2.76-20.0)
== END ==
PROVIDERS: PCP Family Medicine; Referring Provider Family Medicine; Visit Provider Family Medicine
DX: R73.01 Impaired fasting glucose (principal); E56.9 Vitamin deficiency, unspecified
CPT/HCPCS: 36415; 82306; 82607; 82746; 83036

== ENCOUNTER 2024-01-20 08:06 | Emergency (ER) | payer MEDICARE, OTHER, SELFPAY ==
[2022-02-23 23:51] VITALS: BMI 24.9
[2024-01-20] VITALS (17 sets, daily range): BP systolic 154–183; BP diastolic 74–114; PULSE 52–79; RESP 14–32; TEMP 36.8; O2SAT 95–100; BMI 24.0
--- NOTE | 2024-01-20 08:29 | EKG_ITS ---
[address] [address] Test Date: 2024-01-20 Pat Name: Nora Mckeon Department: Room: Gender: Female Shaker Out: ABBI : 1955 Requested By: Order Number: [id number] Reading MD: Jitendra Richey Measurements Intervals [place] Rate: 54 P: 67 ME: 158 QRS: 24 QRSD: 74 T: 21 QT: 462 QTc: 438 Interpretive Statements Sinus bradycardia Electronically Signed On 01-20-2024 18:26:23 PDT by Jitendra Richey
[2024-01-20 08:39] LABS: Add Manual Diff / Slide Review NO; Basophils Absolute Auto 0 /uL (0-100); Basophils Percent Auto 0.9 % (0-2); Eosinophils Absolute Auto 100 /uL (0-450); Eosinophils Percent Auto 1.8 % (2-4); Hematocrit 32.8 % (36-46); Hemoglobin 11.1 g/dL (12.0-16.0); Lymphocytes Absolute Auto 900 /uL (1100-4500); Lymphocytes Percent Auto 17.3 % (25-40); Mean Corpuscular HGB Conc 33.9 % (30-36); Mean Corpuscular Hemoglobin 30.9 PG (26-34); Mean Corpuscular Volume 91.2 fL (80-100); Monocytes Absolute Auto 400 /uL (0-900); Monocytes Percent Auto 7.8 % (3-14); Neutrophils Absolute Auto 3900 /uL (1500-7000); Neutrophils Percent Auto 72.2 % (50-75); Platelet Count 262 X10^3/uL (150-400); Red Cell Distribution Width 13.5 % (11.6-14.8); White Blood Cell Count 5.4 X10^3/uL (4.5-11.0)
[2024-01-20 08:50] LABS: Alanine Aminotransferase 14 IU/L (<35); Albumin 4.1 g/dL (3.5-5.0); Albumin Globulin Ratio 1.8 (1.0-2.8); Alkaline Phosphatase 104 U/L (38-126); Aspartate Aminotransferase 25 IU/L (14-36); BUN Creatinine Ratio 17.2 (6-22); Bilirubin Total 0.7 mg/dL (0.2-1.3); Blood Urea Nitrogen 16 mg/dL (7-17); Calcium 8.9 mg/dL (8.4-10.2); Carbon Dioxide 26 mmol/L (22-32); Chloride 106 mmol/L (98-107); Estimated Glomerular Filt Rate > 60 mL/min (>60); Globulin 2.3 g/dL (1.7-4.1); Glucose 100 mg/dL (80-110); HEMOLYSIS < 15 (0-50); Lipase 61 U/L (23-300); Sodium 135 mmol/L (137-145); Total Protein 6.4 g/dL (6.3-8.2)
--- NOTE | 2024-01-20 10:43 | ED.GENADULT ---
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 that prompted today's visit. She notes she has been having increasing abdominal pain for the last number of months. She describes distention pain through the upper portion of her abdomen. After her gastric bypass her weight has been stable for a number of years at 135 and over the last couple of months has dropped down to 123 as of yesterday. She has not been trying to lose weight. She does not describe headaches no vomiting no palpitations or shortness a breath no lower extremity edema. Related Data Allergies Allergy/AdvReac Type Severity Reaction Status Date / Time No Known Drug Allergies Allergy Verified 03/12/19 12:05 Review of Systems Review of Systems Narrative: Pertinent positive and negative findings as per HPI Patient History Medical History (Updated 01/20/24 @ 15:49 by Miriam Vick MD) Hypokalemia Hypertension Surgical History History of bilateral breast reduction surgery History of total hysterectomy History of cholecystectomy H/O gastric bypass Social History household members: spouse Smoking Status: Former smoker Smoking Status: Former smoker alcohol intake frequency: 0-2 drinks per day Alcohol type: beer Substance Use Type: does not use Exam Initial Vital Signs Initial Vital Signs: Vital Signs Pulse Rate 62 01/20/24 08:26 Pulse Oximetry 99 01/20/24 08:26 General: Chronically ill-appearing, appears uncomfortable but not toxic. Able to give a complete and coherent history HEENT: Moist mucous membranes, normal sclera with reactive pupils, Respiratory: Lungs are clear to auscultation, no wheezing no rales no rhonchi. Full and symmetrical air movement Cardiac: Regular rate and rhythm no murmurs no bruits Abdomen: Soft, tender through the entire upper abdomen without rebound or guarding Skin: Warm and dry, no rashes Neurologic: Grossly neurologically intact with no obvious asymmetries or abnormalities Extremities: No trauma, well perfused Psych: Cooperative, appropriate insight and affect Course Orders Ordered: ED Orders 01/20/24 08:27 Complete Blood Count AUTO DIFF Stat Comprehensive Metabolic Panel Stat Lipase Stat EKG-12 Lead Stat 01/20/24 10:53 CT abdomen pelvis w con Stat 01/20/24 13:13 MRCP [MR abdomen wo/w con] Stat Ondansetron HCl (Ondansetron 4 Mg/2 Ml Inj) 4 mg IV NOW PRN PRN Reason: Nausea And Vomiting Ondansetron HCl (Ondansetron 4 Mg Odt) 4 mg PO NOW PRN PRN Reason: Nausea And Vomiting Vital Signs Vital signs: Vital Signs - 8 hr 01/20/24 08:26 01/20/24 08:28 01/20/24 08:30 Temperature 98.2 F Pulse Rate 62 60 56 L Respiratory Rate 16 Blood Pressure 160/74 H Pulse Oximetry 99 95 99 Oxygen Delivery Method Room Air 01/20/24 08:32 01/20/24 08:32 01/20/24 09:00 Temperature Pulse Rate 54 L 53 L Respiratory Rate 15 Blood Pressure 163/75 H Pulse Oximetry 100 99 Oxygen Delivery Method 01/20/24 09:00 01/20/24 09:30 01/20/24 09:30 Temperature Pulse Rate 53 L Respiratory Rate 19 Blood Pressure 165/79 H 180/86 H Pulse Oximetry 99 Oxygen Delivery Method 01/20/24 09:42 01/20/24 09:42 01/20/24 10:00 Temperature Pulse Rate 53 L 52 L Respiratory Rate 18 Blood Pressure 172/82 H Pulse Oximetry 100 99 Oxygen Delivery Method 01/20/24 10:00 01/20/24 10:30 01/20/24 10:30 Temperature Pulse Rate 53 L Respiratory Rate 15 Blood Pressure 165/75 H 167/76 H Pulse Oximetry 99 Oxygen Delivery Method 01/20/24 11:04 01/20/24 11:05 01/20/24 11:05 Temperature Pulse Rate 79 67 Respiratory Rate 19 18 Blood Pressure 183/84 H Pulse Oximetry 98 100 Oxygen Delivery Method 01/20/24 11:30 01/20/24 11:30 01/20/24 12:00 Temperature Pulse Rate 66 72 Respiratory Rate 32 H 22 Blood Pressure 171/114 H Pulse Oximetry 99 98 Oxygen Delivery Method 01/20/24 12:00 01/20/24 12:30 01/20/24 12:31 Temperature Pulse Rate 59 L Respiratory Rate 19 Blood Pressure 154/84 H 181/83 H Pulse Oximetry 99 Oxygen Delivery Method 01/20/24 12:31 01/20/24 13:00 01/20/24 13:00 Temperature Pulse Rate 59 L 59 L Respiratory Rate 14 20 Blood Pressure 168/81 H Pulse Oximetry 99 100 Oxygen Delivery Method 01/20/24 15:24 Temperature Pulse Rate 71 Respiratory Rate 16 Blood Pressure 177/78 H Pulse Oximetry 100 Oxygen Delivery Method Room Air Medical Decision Making Lab Data 01/20/24 08:27 01/20/24 08:27 Labs: Lab Results 01/20/24 Range/Units 08:27 WBC 5.4 (4.5-11.0) X10^3/uL RBC 3.60 L (4.0-5.2) X10^6/uL Hgb 11.1 L (12.0-16.0) g/dL Hct 32.8 L (36-46) % MCV 91.2 (80-100) fL MCH 30.9 (26-34) PG MCHC 33.9 (30-36) % RDW 13.5 (11.6-14.8) % Plt Count 262 (150-400) X10^3/uL Neut % (Auto) 72.2 (50-75) % Lymph % (Auto) 17.3 L (25-40) % [place] % (Auto) 7.8 (3-14) % Eos % (Auto) 1.8 L (2-4) % Baso % (Auto) 0.9 (0-2) % Neut # (Auto) 3900 (6513-4457) /uL Lymph # (Auto) 900 L (5039-9831) /uL [place] # (Auto) 400 (0-900) /uL Eos # (Auto) 100 (0-450) /uL Baso # (Auto) 0 (0-100) /uL Sodium 135 L (137-145) mmol/L Potassium 4.0 (3.4-5.1) mmol/L Chloride 106 (98-107) mmol/L Carbon Dioxide 26 (22-32) mmol/L BUN 16 (7-17) mg/dL Creatinine 0.93 (0.52-1.04) mg/dL Estimated GFR > 60 (>60) mL/min BUN/Creatinine Ratio 17.2 (6-22) Glucose 100 (80-110) mg/dL Calcium 8.9 (8.4-10.2) mg/dL Total Bilirubin 0.7 (0.2-1.3) mg/dL AST 25 (14-36) IU/L ALT 14 (<35) IU/L Alkaline Phosphatase 104 (38-126) U/L Total Protein 6.4 (6.3-8.2) g/dL Albumin 4.1 (3.5-5.0) g/dL Globulin 2.3 (1.7-4.1) g/dL Albumin/Globulin Ratio 1.8 (1.0-2.8) Lipase 61 (23-300) U/L Urine Dip Bedside Urine Glucose Negative Bedside Urine Bilirubin - Negative Bedside Urine Ketone - Negative Urine Specific [place] 1.005 Bedside Urine Occult Blood - Negative Bedside Urine pH 6.0 Bedside Urine Protein - Negative Bedside Urine Urobilinogen - Negative Bedside Urine Nitrite - Negative Bedside Urine Leukocytes - Negative Esterase Point of care testing: Urine Dip Bedside Urine Glucose Negative Bedside Urine Bilirubin - Negative Bedside Urine Ketone - Negative Urine Specific [place] 1.005 Bedside Urine Occult Blood - Negative Bedside Urine pH 6.0 Bedside Urine Protein - Negative Bedside Urine Urobilinogen - Negative Bedside Urine Nitrite - Negative Bedside Urine Leukocytes - Negative Esterase Imaging Data CT scan - abdomen/pelvis: Radiologist's Impression: PROCEDURE: CT ABDOMEN PELVIS W CON INDICATIONS: abd pain TECHNIQUE: After the administration of intravenous contrast, axial sections acquired from the lung bases to the pubic symphysis. Coronal and sagittal reformats were performed. For radiation dose reduction, the following was used: automated exposure control, adjustment of mA and/or kV according to patient size. COMPARISON: None. FINDINGS: Image quality: Diagnostic. Lower Chest: No significant findings. ABDOMEN: Liver: No solid mass. Intrahepatic biliary ductal dilatation. Gallbladder: Surgically absent Biliary ducts: Marked dilatation of the extrahepatic duct and central intrahepatic duct with diffuse intrahepatic biliary ductal dilatation. Pancreas: No ductal dilation. Spleen: Size is within normal limits. Adrenal Glands: No adrenal nodules. Kidneys and Ureters: No hydronephrosis. No solid mass. No complex renal cystic lesion which requires follow up. Stomach and Bowel: Remote gastric bypass. Previous partial ileal resection. There is a jejunal-jejunal intussusception, which is typically an incidental finding. Reference coronal image 32 of series 4 and axial image 32 of series 2. There is mild thickening of an ileal loop at the ileal anastomotic clips. It is not dilated and it is not thinned. Bowel loops are of normal caliber and otherwise have no abnormal thickening. Peritoneum: No abnormal intraperitoneal fluid. No free air. Ventral Wall: No significant ventral hernia. Abdominal Nodes: No retroperitoneal or mesenteric adenopathy by size criteria. Vessels: Aorta and inferior vena cava are normal in size. PELVIS: Pelvic Organs: Uterus is surgically absent. No adnexal masses.. Bladder: No bladder wall thickening, accounting for underdistention. Pelvic Nodes: No enlarged lymph nodes. Miscellaneous: No inguinal hernias are seen. Bones: No aggressive osseous abnormality. IMPRESSION: 1. Remote cholecystectomy. 2. Marked biliary ductal dilatation. 3. Previous gastric bypass and small-bowel partial resection. 4. A jejunal intussusception is typically asymptomatic and incidental. 5. There is mild abnormal wall thickening of a distal ileal loop at the anastomosis, of uncertain significance. There is no obstruction. 6. Remote hysterectomy. Comment: If suspect bili obstruction from a stone, recommend MRCP. This can be performed with without contrast to also evaluate for possible ampullary mass. Dictated by: Joe Cuellar M.D. on 01/20/2024 at 11:07 MRCP: Radiologist's Impression: PROCEDURE: MR ABDOMEN WO/W CON INDICATIONS: upper abd pain and dilated billiary ducts, post Edn-en Y TECHNIQUE: Coronal HASTE, axial 2D FLASH in- and [id number]; axial breath-hold T2 FSE with fat saturation from the hepatic dome to the iliac crests. Oblique coronal thin-slice and radial thick slab HASTE through the biliary system. Dynamic axial VIBE during administration of contrast. Post-contrast coronal VIBE or 2D FLASH with fat saturation from the hepatic dome to the iliac crests. Optional diffusion weighted imaging and ADC may be performed. COMPARISON: [facility], CT, CT ABDOMEN PELVIS W CON, 01/20/2024, 11:04. FINDINGS: Image quality: Diagnostic. Gallbladder: Absent. Biliary ducts: Intrahepatic and extrahepatic biliary dilation. Common bile duct measures up to 1.4 centimeters, greater than expected given a post cholecystectomy state. There is no tapering of the common bile duct. Pancreas: 1.3 centimeters cystic lesion with close association to the pancreatic duct within the superior pancreatic head (series 7, image 10). Additional subcentimeter T2 hyperintense cystic lesions are also present. No associated nodularity. OTHER: Lung bases: Unremarkable. Liver: suspected subcentimeter meningioma of segment 6. No suspicious mass. Spleen: Size is within normal limits. Adrenal Glands: No adrenal nodules. Kidneys and Ureters: No hydronephrosis. No solid mass. No complex renal cystic lesion which requires follow up. Stomach and Bowel: Normal colonic caliber, without significant wall thickening. Prior gastric bypass. Peritoneum: No abnormal intraperitoneal fluid. No free air. Ventral Wall: No hernia. Abdominal Nodes: No retroperitoneal or mesenteric adenopathy by size criteria. Vessels: Aorta and inferior vena cava are normal in size. Bones: No aggressive osseous abnormality. IMPRESSION: Distended common bile duct, greater than expected in a post cholecystectomy state. Differential includes stricture or periampullary mass, less likely reservoir effect. GI referral should be considered for ERCP. Pancreatic cystic lesions, largest measuring 1.3 centimeters, with close association to the pancreatic duct. Recommend 2 year follow-up x5 per consensus guidelines. Dictated by: Cruzito Perez M.D. on 01/20/2024 at 15:29 MDM Narrative Medical decision making narrative: CC: 68-year-old woman with 2-3 months of increasing abdominal pain, post Den-en-Y bypass, 12 lb unintentional weight loss and pain worse today Complicating co-morbidities: Prior Den-en-Y, cholecystectomy Data collected from: patient Differential considered: Obstruction, mass or tumor, infectious etiology Exam documented above, pertinent findings include: Patient does have significant tenderness across the upper abdomen however there is no rebound or guarding Lab Test results independently reviewed as above. Pertinent findings: cbc no leukocytosis but mild anemia with hemoglobin and 11.1 and hematocrit at 32.8 with comparison February of 2022 at 13.1 and 38.9 Chemistries are unremarkable with normal liver studies Independently reviewed EKG: Sinus rhythm at a rate of 54. No acute abnormalities. No ischemic changes Imaging studies independently reviewed: CT scan has some minor abnormalities and it is unclear how to fully interpret this. Marked biliary ductal dilatation. Previous gastric bypass and small-bowel partial resection, A jejunal intussusception is typically asymptomatic and incidental. There is mild abnormal wall thickening of a distal ileal loop at the anastomosis, of uncertain significance. There is no obstruction.Will obtain an MRCP for further evaluation of the ductal dilatation and pancreatic head In discussion with the patient regarding findings, uncertainty, dilated ducts and persistent pain we will go ahead and order MRCP Discussion: 68-year-old woman post Den-en-Y bypass and cholecystectomy presenting with continued and increasing midepigastric/upper abdominal pain. CT scan suggested dilated ducts MRCP suggested possibility of stricture at the ampulla of Vater versus compression from cyst in the head of the pancreas. I believe the next step in her workup is going to be talking with the Gastroenterology and probably an ERCP. Reviewed all of these findings with her. At this point there is no evidence of infection, life-threatening abnormalities, need for antibiotics, hospital admission or further imaging. Questions are answered and she is safe for discharge Discharge Plan Departure Patient Disposition: Home Clinical Impression: Abnormal weight loss Abdominal pain Qualifiers: Abdominal location: epigastric Qualified Code(s): R10.13 - Epigastric pain Activity Restrictions/Additional Instructions: Thank you for coming in today Your CT scan suggested dilated ducts throughout your liver. Your lab work was very reassuring with no concern for infection, liver problems, kidney problems or pancreatitis Based on the CT scan and MRCP was ordered to further evaluate the dilated ducts. There was a question of some stenosis at the opening of the duct and a small cyst in the head of the pancreas that may also be affecting the duct opening. At this point, I think the next most appropriate step is going to be referral to Gastroenterology. You may need an endoscopy so that they can actually look at that duct opening to see if it needs to be gently stretched or there are other concerns or the cyst needs to be drained or more completely addressed. I do not know that this is actually causing your pain however I am not finding other life-threatening abnormalities. I am going to recommend that you contact [facility] gastroenterology at [phone]. Please let them know that you were seen in the emergency department with CT scans an MRCP done and concerns for stricture of the ampulla or periampulla obstruction If you find that you are getting worse or develop any new symptoms, please feel free to return to the emergency department for further evaluation. Referrals: Rena Matthews CHIMNEY REPAIRER [Primary Care Provider] - Stand Alone Forms: Patient Portal/API
--- NOTE | 2024-01-20 10:53 | DI.CT.S_ITS ---
PROCEDURE: CT ABDOMEN PELVIS W CON INDICATIONS: abd pain TECHNIQUE: After the administration of intravenous contrast, axial sections acquired from the lung bases to the pubic symphysis. Coronal and sagittal reformats were performed. For radiation dose reduction, the following was used: automated exposure control, adjustment of mA and/or kV according to patient size. COMPARISON: None. FINDINGS: Image quality: Diagnostic. Lower Chest: No significant findings. ABDOMEN: Liver: No solid mass. Intrahepatic biliary ductal dilatation. Gallbladder: Surgically absent Biliary ducts: Marked dilatation of the extrahepatic duct and central intrahepatic duct with diffuse intrahepatic biliary ductal dilatation. Pancreas: No ductal dilation. Spleen: Size is within normal limits. Adrenal Glands: No adrenal nodules. Kidneys and Ureters: No hydronephrosis. No solid mass. No complex renal cystic lesion which requires follow up. Stomach and Bowel: Remote gastric bypass. Previous partial ileal resection. There is a jejunal-jejunal intussusception, which is typically an incidental finding. Reference coronal image 32 of series 4 and axial image 32 of series 2. There is mild thickening of an ileal loop at the ileal anastomotic clips. It is not dilated and it is not thinned. Bowel loops are of normal caliber and otherwise have no abnormal thickening. Peritoneum: No abnormal intraperitoneal fluid. No free air. Ventral Wall: No significant ventral hernia. Abdominal Nodes: No retroperitoneal or mesenteric adenopathy by size criteria. Vessels: Aorta and inferior vena cava are normal in size. PELVIS: Pelvic Organs: Uterus is surgically absent. No adnexal masses.. Bladder: No bladder wall thickening, accounting for underdistention. Pelvic Nodes: No enlarged lymph nodes. Miscellaneous: No inguinal hernias are seen. Bones: No aggressive osseous abnormality. IMPRESSION: 1. Remote cholecystectomy. 2. Marked biliary ductal dilatation. 3. Previous gastric bypass and small-bowel partial resection. 4. A jejunal intussusception is typically asymptomatic and incidental. 5. There is mild abnormal wall thickening of a distal ileal loop at the anastomosis, of uncertain significance. There is no obstruction. 6. Remote hysterectomy. Comment: If suspect bili obstruction from a stone, recommend MRCP. This can be performed with without contrast to also evaluate for possible ampullary mass. Dictated by: Joe Cuellar M.D. on 01/20/2024 at 11:07 Approved by: Joe Cuellar M.D. on 01/20/2024 at 11:12
--- NOTE | 2024-01-20 13:13 | DI.MRI.S_ITS ---
PROCEDURE: MR ABDOMEN WO/W CON INDICATIONS: upper abd pain and dilated billiary ducts, post Den-en Y TECHNIQUE: Coronal HASTE, axial 2D FLASH in- and [id number]; axial breath-hold T2 FSE with fat saturation from the hepatic dome to the iliac crests. Oblique coronal thin-slice and radial thick slab HASTE through the biliary system. Dynamic axial VIBE during administration of contrast. Post-contrast coronal VIBE or 2D FLASH with fat saturation from the hepatic dome to the iliac crests. Optional diffusion weighted imaging and ADC may be performed. COMPARISON: [facility], CT, CT ABDOMEN PELVIS W CON, 01/20/2024, 11:04. FINDINGS: Image quality: Diagnostic. Gallbladder: Absent. Biliary ducts: Intrahepatic and extrahepatic biliary dilation. Common bile duct measures up to 1.4 centimeters, greater than expected given a post cholecystectomy state. There is no tapering of the common bile duct. Pancreas: 1.3 centimeters cystic lesion with close association to the pancreatic duct within the superior pancreatic head (series 7, image 10). Additional subcentimeter T2 hyperintense cystic lesions are also present. No associated nodularity. OTHER: Lung bases: Unremarkable. Liver: suspected subcentimeter meningioma of segment 6. No suspicious mass. Spleen: Size is within normal limits. Adrenal Glands: No adrenal nodules. Kidneys and Ureters: No hydronephrosis. No solid mass. No complex renal cystic lesion which requires follow up. Stomach and Bowel: Normal colonic caliber, without significant wall thickening. Prior gastric bypass. Peritoneum: No abnormal intraperitoneal fluid. No free air. Ventral Wall: No hernia. Abdominal Nodes: No retroperitoneal or mesenteric adenopathy by size criteria. Vessels: Aorta and inferior vena cava are normal in size. Bones: No aggressive osseous abnormality. IMPRESSION: Distended common bile duct, greater than expected in a post cholecystectomy state. Differential includes stricture or periampullary mass, less likely reservoir effect. GI referral should be considered for ERCP. Pancreatic cystic lesions, largest measuring 1.3 centimeters, with close association to the pancreatic duct. Recommend 2 year follow-up x5 per consensus guidelines. Dictated by: Cruzito Perez M.D. on 01/20/2024 at 15:29 Approved by: Cruzito Perez M.D. on 01/20/2024 at 15:37
== END 2024-01-20 15:56 | disposition home or self-care (01) ==
PROVIDERS: Emergency Provider Emergency Medicine; PCP Family Medicine
DX: R10.13 Epigastric pain (principal); R63.4 Abnormal weight loss; R79.89 Other specified abnormal findings of blood chemistry; Z98.84 Bariatric surgery status
CPT/HCPCS: 74177; 74183; 80053; 81003; 83690; 85025; 93005; 99282; 99284; A9579; Q9967

== ENCOUNTER → 2024-02-19 07:55 | Outpatient (CLI) | payer MEDICARE, OTHER, SELFPAY ==
[2022-02-23 23:51] VITALS: BMI 24.9
--- NOTE | 2024-02-19 07:56 | DI.MG.S_ITS ---
BILATERAL DIGITAL SCREENING MAMMOGRAM 3D/2D WITH CAD: 02/19/2024 CLINICAL: Routine screening. Comparison is made to exams dated: 04/23/2022 mammogram - [facility], 09/24/2011 mammogram, and 01/12/2001 mammogram - outside location. Both breasts are almost entirely fatty (category a/<25% glandular tissue). Current study was also evaluated with a Computer Aided Detection (CAD) system. There is a benign lymph node in the left breast. No significant masses, calcifications, or other findings are seen in either breast. There has been no significant interval change. IMPRESSION: BENIGN There is no mammographic evidence of malignancy. A 1 year screening mammogram is recommended. Based on the Tyrer Cuzick model (a risk assessment model) the patient's lifetime risk is 2.7% and her 10 year risk is 1.6%. According to the ACR, ACS, and NCCN guidelines, an annual breast MRI exam along with mammogram is recommended if the patient's lifetime risk is 20% or greater. This exam was interpreted at Station ID: [id number]. NOTE: For mammograms, a report in lay terms will be sent to the patient. Approximately 15% of breast malignancies will not be visualized mammographically. In the management of a palpable breast mass, a negative mammogram must not discourage biopsy of a clinically suspicious lesion. Electronically Signed By: Paige moya/shellie:02/19/2024 16:36:58 letter sent: Normal Exam ACR BI-RADS Category 2: Benign Finding(s) 3342F
--- NOTE | 2024-02-19 07:57 | DI.RAD.S_ITS ---
PROCEDURE: XR DEXA AXIAL SKELETON INDICATIONS: MENOPAUSAL AND PERIMENOPAUSAL DISORDER COMPARISON: None. FINDINGS: Lumbar Spine: Bone mineral density 1.003 g/cm2, T score -0.4 Left Hip: Bone mineral density 0.862 g/cm2, T score -0.7 Left Femoral Neck: Bone mineral density 0.676 g/cm2, T score -1.6 Right Hip: Bone mineral density 0.829 g/cm2, T score -0.9. Right Femoral Neck: Bone mineral density 0.648 g/cm2, T score -1.8 Fracture Risk Calculation (when applicable): 10-year fracture risk of a major osteoporotic fracture 11% and of a hip fracture 1.8% (T score greater or equal to -1.0 to: NORMAL) (T score from -1.1 to -2.4: OSTEOPENIA) (T score less than or equal to -2.5: OSTEOPOROSIS) IMPRESSION: There is osteopenia of the left femoral neck and right femoral. The lumbar spine, left hip and right hip demonstrate normal T-score. Follow-up guidelines as follows: Osteoporosis: Consider a repeat DEXA and Vertebral Fracture Assessment (VFA) exam in 2 years or sooner if medically necessary, to reassess this patient's status. Osteopenia: Consider a repeat DEXA in 2-3 years to reassess this patient's status, or if there is a new clinical indication. Normal: Consider a repeat DEXA in 5 years or sooner, or if there is a new clinical indication. All treatment decisions require clinical judgment and consideration of individual patient factors, including patient preferences, comorbidities, previous drug use, risk factors not captured in the FRAX model (e.g., frailty, falls, vitamin D deficiency, increased bone turnover, interval significant decline in bone density ) and possible under- or over-estimation of fracture risk by FRAX. In addition, the NOF Guide recommends that FDA-approved medical therapies be considered in postmenopausal women and men age >= 50 years with a: * Hip or vertebral (clinical or morphometric) fracture * T-score of <=-2.5 at the spine or hip * Ten-year fracture probability by FRAX of >= 3% for hip fracture or >=20% for major osteoporotic fracture. People with diagnosed cases of osteoporosis or at high risk for fracture should have regular bone mineral density tests. For patients eligible for Medicare, routine testing is allowed once every 2 years. The testing frequency can be increased to one year for patients who have rapidly progressing disease, those who are receiving or discontinuing medical therapy to restore bone mass, or have additional risk factors. Dictated by: Gonzalez Lopez M.D. on 02/19/2024 at 12:27 Approved by: Gonzalez Lopez M.D. on 02/19/2024 at 12:32
== END ==
PROVIDERS: PCP Nurse Practitioner Family; Referring Provider Nurse Practitioner Family; Visit Provider Nurse Practitioner Family
DX: Z12.31 Encounter for screening mammogram for malignant neoplasm of breast (principal); N95.9 Unspecified menopausal and perimenopausal disorder; R92.313 Mammographic fatty tissue density, bilateral breasts; M85.89 Other specified disorders of bone density and structure, multiple sites
CPT/HCPCS: 77063; 77067; 77080

== ENCOUNTER 2025-06-21 03:31 | Emergency (ER) | payer MEDICARE, OTHER, SELFPAY ==
[2022-02-23 23:51] VITALS: BMI 24.9
[2025-06-21] VITALS (11 sets, daily range): BP systolic 157–183; BP diastolic 72–84; PULSE 61–88; RESP 15–24; O2SAT 92–100; BMI 25.4
--- NOTE | 2025-06-21 03:37 | DI.CT.S_ITS ---
PROCEDURE: CT ABDOMEN PELVIS W CON INDICATIONS: lower ab pain hx bipass TECHNIQUE: After the administration of intravenous contrast, axial sections acquired from the lung bases to the pubic symphysis. Coronal and sagittal reformats were performed. For radiation dose reduction, the following was used: automated exposure control, adjustment of mA and/or kV according to patient size. COMPARISON: [facility], CT, CT ABDOMEN PELVIS W CON, 01/20/2024, 11:04. FINDINGS: Image quality: Diagnostic Lower chest: Lung bases appear unremarkable. Heart size is at the upper limit of normal. Small hiatal hernia Liver: Unremarkable Gallbladder and biliary system: Cholecystectomy clips. Similar biliary ductal dilation, up to 1.3 cm in the mid CBD, similar to prior imaging. Pancreas: Mildly ectatic pancreatic duct at the head, similar to prior imaging. There is no discrete mass by CT Spleen: Nonenlarged Adrenals: No discrete nodules Kidneys: No solid renal mass. Subcentimeter lesions are seen, too small to characterize. These are typically cysts. No hydronephrosis. Vessels and lymph nodes: The main portal vein appears patent. No abdominal aneurysm. Mild aortoiliac atherosclerotic calcifications. No lymphadenopathy by size criteria Bowel and peritoneum: Moderate-sized duodenal diverticulum is seen, with moderate surrounding edema also involving the pancreatic head. Small adjacent free air. Gastric bypass changes. No bowel obstruction. No drainable abscess. No significant ascites. Colonic diverticula are also seen, without focal diverticular colonic inflammation. Nondilated appendix. Body wall: Small fat containing umbilical hernia and ventral midline hernias. Pelvis: Bladder is unremarkable. Hysterectomy Bones: There are degenerative osseous changes. No aggressive appearing osseous abnormality. IMPRESSION: Duodenal perforated diverticulum with moderate surrounding edema. There is adjacent free air in the retroperitoneum in the horizontal portion of the duodenum. Inflammation extends adjacent to the pancreatic head, likely reactive, however correlate with lipase. Persistent ectatic pancreatic duct at the head and biliary ductal dilation, similar to prior imaging. Correlate LFTs and possible MRCP if needed. Other findings above. Agree with preliminary report. Dictated by: Pedrito Blanco M.D. on 06/21/2025 at 6:40 Approved by: Pedrito Blanco M.D. on 06/21/2025 at 6:46
--- NOTE | 2025-06-21 04:02 | ED.FALL ---
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 Reports that she woke up at 1:00 a.m. with low back pain. She denies any numbness or tingling in her legs. She has no change in bowel or bladder habits. Also complaining of some abdominal pain. She says that she was given some medication for her bile duct, she took that tonight in hopes that it would help but it did not. She has no fever no chills she is always nauseous no active vomiting. She denies any chest pain or shortness of breath. Related Data Home Medications ?Medication ?Instructions ?Recorded ?Confirmed hydrochlorothiazide 25 mg tablet 25 mg PO DAILY 04/22/24 04/22/24 labetalol 200 mg tablet 200 mg PO BID 04/22/24 04/22/24 lisinopril 10 mg tablet 10 mg PO DAILY 04/22/24 04/22/24 Previous Rx's ?Medication ?Instructions ?Recorded amlodipine 5 mg tablet 5 mg PO DAILY #90 tabs 09/08/24 omeprazole 40 mg capsule,delayed 40 mg PO DAILY #90 caps 06/13/25 release Allergies Allergy/AdvReac Type Severity Reaction Status Date / Time No Known Drug Allergies Allergy Verified 04/22/24 08:23 Patient History Medical History Kidney stones (~1999) Hemorrhoid (~1999) Hypokalemia Hypertension Surgical History Anesthesia Hx of resection of meningioma History of bilateral breast reduction surgery History of total hysterectomy History of cholecystectomy H/O gastric bypass Social History household members: spouse Smoking Status: Never smoker Smoking Status: Never smoker alcohol intake frequency: 0-2 drinks per day Alcohol type: beer Exam Initial Vital Signs Initial Vital Signs: Vital Signs Pulse Rate 67 06/21/25 03:36 Blood Pressure 183/84 H 06/21/25 03:36 Pulse Oximetry 99 06/21/25 03:36 Oxygen Delivery Method Room Air 06/21/25 03:36 GENERAL: Alert 69-year-old female appears uncomfortable and in no acute distress. HEENT: Head atraumatic,EOMI, pupils reactive, face symmetric, moist mucous membranes CARDIOVASCULAR: Regular rate and rhythm without murmurs, rubs or gallops. RESPIRATORY: Breath sounds equal bilaterally, no wheezes rales or rhonchi. ABDOMEN: Soft mildly tender no significant distention no lower abdominal pain no right lower quadrant pain negative Mckee's sign BACK: Lower lumbar pain no vertebral tenderness no step-off : No CVA tenderness EXTREMITIES: Normal range of motion, no clubbing or edema. Neurovascularly intact NEUROLOGICAL: Alert and oriented x4.Normal gait and speech. Cranial nerves II through XII grossly intact. Moving all extremities SKIN: Warm, dry, no laceration, no petechiae, no rashes or lesions. Course Orders Ordered: Discontinued Medications Hydromorphone HCl (Hydromorphone Hcl 0.5 Mg/0.5 Ml Syringe) 0.5 mg IV NOW ONE Stop: 06/21/25 03:38 Last Admin: 06/21/25 03:45 Dose: 0.5 mg Documented By: TAD Hydromorphone HCl (Hydromorphone 1 Mg/Ml Syringe) 1 mg IV NOW ONE Stop: 06/21/25 04:57 Last Admin: 06/21/25 08:01 Dose: 1 mg Documented By: JACOB Sodium Chloride (Normal Saline 0.9%) 1,000 mls @ 1,000 mls/hr IV BOLUS ONE Stop: 06/21/25 05:55 Last Infusion: 06/21/25 06:05 Dose: Infused Documented By: Admin: 06/21/25 05:03 Dose: 1,000 mls/hr Documented By: TONIA Piperacillin Sod/Tazobactam (Sod 4.5 gm/ Sodium Chloride) 100 mls @ 200 mls/hr IV NOW ONE Stop: 06/21/25 05:44 Last Infusion: 06/21/25 07:31 Dose: Infused Documented By: Admin: 06/21/25 06:43 Dose: 200 mls/hr Documented By: TONIA Ketorolac Tromethamine (Ketorolac 30 Mg/Ml Vial) 15 mg IV NOW ONE Stop: 06/21/25 04:51 Last Admin: 06/21/25 04:56 Dose: 15 mg Documented By: TONIA Ondansetron HCl (Ondansetron 4 Mg/2 Ml Inj) 4 mg IV NOW ONE Stop: 06/21/25 04:57 Last Admin: 06/21/25 05:03 Dose: 4 mg Documented By: TONIA Ondansetron HCl (Ondansetron 4 Mg/2 Ml Inj) 4 mg IV NOW ONE Stop: 06/21/25 08:08 Last Admin: 06/21/25 08:11 Dose: 4 mg Documented By: JAVIER Pantoprazole Sodium (Pantoprazole 40 Mg Vial) 40 mg IV NOW ONE Stop: 06/21/25 04:57 Last Admin: 06/21/25 05:04 Dose: 40 mg Documented By: TONIA Vital Signs Vital signs: Vital Signs - 8 hr 06/21/25 03:38 Pulse Rate 75 Respiratory Rate 22 Blood Pressure 183/84 H Pulse Oximetry 97 Oxygen Delivery Method Room Air MDM - Fall Lab Data 06/21/25 03:45 06/21/25 03:45 Labs: Lab Results 06/21/25 06/21/25 Range/Units 03:45 06:38 WBC 10.6 (4.5-11.0) X10^3/uL RBC 4.30 (4.0-5.2) X10^6/uL Hgb 13.5 (12.0-16.0) g/dL Hct 40.1 (36-46) % MCV 93.1 (80-100) fL MCH 31.4 (26-34) PG MCHC 33.8 (30-36) % RDW 13.6 (11.6-14.8) % Plt Count 219 (150-400) X10^3/uL Neut % (Auto) 88.0 H (50-75) % Lymph % (Auto) 6.8 L (25-40) % [place] % (Auto) 3.6 (3-14) % Eos % (Auto) 0.8 L (2-4) % Baso % (Auto) 0.8 (0-2) % Neut # (Auto) 9400 H (5906-7208) /uL Lymph # (Auto) 700 L (8599-9621) /uL [place] # (Auto) 400 (0-900) /uL Eos # (Auto) 100 (0-450) /uL Baso # (Auto) 100 (0-100) /uL Sodium 137 (137-145) mmol/L Potassium 3.8 (3.4-5.1) mmol/L Chloride 106 (98-107) mmol/L Carbon Dioxide 22 (22-32) mmol/L BUN 20 H (7-17) mg/dL Creatinine 0.96 (0.52-1.04) mg/dL Estimated GFR > 60 (>60) mL/min BUN/Creatinine Ratio 20.8 (6-22) Glucose 125 H (70-99) mg/dL Lactate 1.0 (0.7-2.1) mmol/L Calcium 9.4 (8.4-10.2) mg/dL Total Bilirubin 0.7 (0.2-1.3) mg/dL AST 30 (14-36) IU/L ALT 18 (<35) IU/L Alkaline Phosphatase 103 (38-126) U/L Total Protein 7.5 (6.3-8.2) g/dL Albumin 4.8 (3.5-5.0) g/dL Globulin 2.7 (1.7-4.1) g/dL Albumin/Globulin Ratio 1.8 (1.0-2.8) Lipase 79 (23-300) U/L Urine Dip Bedside Urine Glucose Negative Bedside Urine Bilirubin - Negative Bedside Urine Ketone - Negative Urine Specific [place] 1.010 Bedside Urine Occult Blood - Negative Bedside Urine pH 6.0 Bedside Urine Protein - Negative Bedside Urine Urobilinogen - Negative Bedside Urine Nitrite - Negative Bedside Urine Leukocytes - Negative Esterase Imaging Data CT scan - abdomen/pelvis: Radiologist's Impression: Preliminary report: 1. Perforated duodenal diverticulum. Small adjacent pneumoperitoneum 2. Prior cholecystectomy. Intra and extra hepatic bile duct dilatation and mild dilatation of main pancreatic duct. Underlying stricture lesion or choledocholithiasis maybe present. Consider nonemergent MRCP. Fat stranding surrounds debris filled 4.0 x 3.4 x 2.8 cm 3rd portion of duodenum diverticulum with the adjacent extra luminal gas locules series 2, image 53. There is surrounding small fluid and fat stranding extending inferiorly along Gerota's fascia. MDM Narrative Medical decision making narrative: MDM CC: Abdominal pain back pain Complicating co-morbidities: Prior Den-en-Y surgery Data collected from: Patient Medical records reviewed: PCP visit from April 2024 but no other visits Differential considered: [ ] Exam documented above, pertinent findings include: Abdomen is tender epigastric right upper quadrant region significant distention mild diffuse tenderness no significant localization. Lower lumbar back pain no vertebral tenderness moving all extremities Lab Test results independently reviewed as above. Pertinent findings: CBC no leukocytosis no anemia mild left shift CMP no electrolyte abnormality creatinine 0.96, glucose 125 Bilirubin liver enzymes within normal limits lipase 79 Lactate 1.0 Blood cultures pending Imaging studies independently reviewed: CT abdomen pelvis: Preliminary report shows perforated duodenal diverticulum with small adjacent pneumoperitoneum. Fat stranding surrounds debris-filled 4.0 x 3.4 x 2.8 3rd portion of duodenum diverticulum. Consultations: 0545 Dr. Pina on-call General surgery updated on patient's symptoms test results reports that due to patient's Den-en-Y surgery she needs to go to higher level of care 0615 Dr. lau, surgery at [facility] updated on patient's symptoms test results agrees that patient needs to be transferred recommend that patient go to the emergency department her an [facility] transfer Dr. Jasso, ED physician updated on patient's symptoms test results accepts patient Treatments: Dilaudid, Zofran, IV fluids, proton Re-evaluations: After 1st dose of Dilaudid patient and started feeling nauseous UTD started dry heaving. Continues to be in pain. Discussion: Patient is 69-year-old female history of Den-en-Y surgery presenting today with sudden onset of abdominal pain and back pain. Difficult to tell initially what started 1st but it does sound like abdominal pain started 1st. She is tender in her right upper quadrant. She is found to have a perforated duodenal diverticulum. Blood work is overall reassuring. Due to prior Den-en-Y surgery and current perforation is recommended that she be transferred to higher level of care. Pain is now controlled. Discharge Plan Departure Patient Disposition: [facility] Clinical Impression: Perforated diverticulum of duodenum Prescriptions: No Action lisinopril 10 mg tablet 10 mg PO DAILY hydrochlorothiazide 25 mg tablet 25 mg PO DAILY labetalol 200 mg tablet 200 mg PO BID amlodipine 5 mg tablet 5 mg PO DAILY Qty: 90 1RF omeprazole 40 mg capsule,delayed release(DR/EC) 40 mg PO DAILY Qty: 90 4RF Referrals: Harini Zavaleta MD [Primary Care Provider, Family Practice]
[2025-06-21 04:22] LABS: Add Manual Diff / Slide Review NO; Hematocrit 40.1 % (36-46); Hemoglobin 13.5 g/dL (12.0-16.0); Lymphocytes Absolute Auto 700 /uL (1100-4500); Mean Corpuscular HGB Conc 33.8 % (30-36); Mean Corpuscular Hemoglobin 31.4 PG (26-34); Mean Corpuscular Volume 93.1 fL (80-100); Platelet Count 219 X10^3/uL (150-400)
[2025-06-21 04:26] LABS: Alanine Aminotransferase 18 IU/L (<35); Albumin 4.8 g/dL (3.5-5.0); Albumin Globulin Ratio 1.8 (1.0-2.8); Alkaline Phosphatase 103 U/L (38-126); Blood Urea Nitrogen 20 mg/dL (7-17); Calcium 9.4 mg/dL (8.4-10.2); Carbon Dioxide 22 mmol/L (22-32); Chloride 106 mmol/L (98-107); Estimated Glomerular Filt Rate > 60 mL/min (>60); Globulin 2.7 g/dL (1.7-4.1); Glucose 125 mg/dL (70-99); HEMOLYSIS < 15 (0-50); Lipase 79 U/L (23-300); Potassium 3.8 mmol/L (3.4-5.1); Sodium 137 mmol/L (137-145); Total Protein 7.5 g/dL (6.3-8.2)
[2025-06-21] MEDS: KETOROLAC 30 MG/ML VIAL 15 MG IV (04:56)
[2025-06-21] MEDS: ONDANSETRON 4 MG/2 ML INJ IV ×2 (05:03→08:11)
[2025-06-21] MEDS: SODIUM CHLORIDE 0.9% 1,000 ML 1000 ML IV (05:03)
[2025-06-21] MEDS: PANTOPRAZOLE 40 MG VIAL IV (05:04)
[2025-06-21] MEDS: PIPERACILLIN/TAZO 4.5 GM in SODIUM CHLORIDE 0.9% 100 ML IV (06:43)
[2025-06-21 06:58] LABS: Lactate (Lactic Acid) 1.0 mmol/L (0.7-2.1)
--- NOTE | 2025-06-21 07:34 | PC.NURSE ---
Report given to KISHORE Brewer (ED) at [place]. Report called to
== END 2025-06-21 08:12 | disposition short-term general hospital (02) ==
PROVIDERS: Emergency Provider Emergency Medicine; PCP Student in an Organized Health Care Education/Training Program
DX: K57.00 Diverticulitis of small intestine with perforation and abscess without bleeding (principal); Z98.84 Bariatric surgery status; Z90.49 Acquired absence of other specified parts of digestive tract
CPT/HCPCS: 36415; 74177; 80053; 81003; 83605; 83690; 85025; 87040; 96365; 96375; 96376; 99284; J1171; J1885; J2405; J2470; J2543; J7030; J7050; Q9967